=== PATIENT | male | born 1985 | race Hispanic/Latino ===

== ENCOUNTER 2022-04-15 10:55 | Observation (INO) | payer BC, SELFPAY ==
[2022-04-15] VITALS (16 sets, daily range): BP systolic 142–177; BP diastolic 69–98; PULSE 95–124; RESP 18–36; TEMP 36.2–38.7; O2SAT 92–98; BMI 33.9; BMI 33.8
[2022-04-15 11:58] LABS: Absolute Lymphocyte Count 0.82 X10^3/uL (0.83-4.51); Absolute Neutrophil Count 17.8 X10^3/uL (2.0-7.7); Basophil# 0.04 X10^3/uL; Basophil% 0.2 % (0-1); Eosinophil# 0.02 X10^3/uL; Eosinophils% 0.1 % (0-5); Hematocrit 53.4 % (40-54); Hemoglobin 17.5 g/dL (13.0-16.5); Lymphocyte # 0.82 X10^3/ul (0.83-4.51); Lymphocyte % 4.2 % (19-41); Mean Corp Hgb Conc 32.8 g/dL (32-36); Mean Corpuscular Hgb 29.5 pg (27.0-32.0); Mean Corpuscular Volume 89.9 fL (80-94); Mean Platelet Vol. 9.7 fl (6.2-12.0); Monocyte# 0.61 X10^3/uL; Monocyte% 3.1 % (0-10); NRBC Flagged by Analyzer 0 % (0-5); Neutrophil # 17.84 X10^3/uL (2.7-7.7); Platelet Count 208 K/mm3 (150-450); RBC Distribution Width CV 13.7 % (11.6-14.6); RBC Distribution Width SD 45.5 fl (35.1-43.9); Red Blood Count 5.94 M/mm3 (4.6-6.2); White Blood Count 19.4 K/mm3 (4.4-11.0)
--- NOTE | 2022-04-15 12:06 | CT_ITS ---
STUDY: CT ABDOMEN AND PELVIS WITH CONTRAST REASON FOR EXAM: Male, 36 years old. One-day history of right lower quadrant pain and nausea. RADIATION DOSAGE (If Supplied By Facility): CTDIvol = ( 22.71 ) mGy, DLP = ( 1270.72 ) mGycm TECHNIQUE: Transaxial images were obtained from the dome of the diaphragm to the symphysis pubis without oral contrast. IV 100mL Isovue-300 was administered. Sagittal and coronal images were reconstructed. Individualized dose optimization techniques were used for this CT. COMPARISON: None. FINDINGS: Minimal degree of bilateral dependent basilar atelectasis. The visualized portions of the heart are within normal limits. Normal liver. A tiny gallstone is seen within the dependent portion of the gallbladder lumen. Normal spleen. Normal pancreas. Normal bilateral adrenal glands. Normal right kidney. Punctate calculus in the lower pole calyx of the left kidney. Normal visualized stomach. Normal small intestine. Normal colon. There is a tubular, thick-walled appendix (>7mm), consistent with acute appendicitis. Small lymph nodes are seen in the mesenteric fat in the right lower quadrant. This is in keeping with mesenteric adenitis. Normal abdominal aorta. Normal inferior vena cava. There is borderline retroperitoneal lymphadenopathy with enlarged nodes no greater than 10mm in the short axis diameter. Normal urinary bladder. There are prostatic calcifications. Small bilateral inguinal hernias containing fat. Normal osseous structures. CT/Abdomen/Pelvis W IV Cont ONLY IMPRESSION: Acute unruptured appendicitis. Tiny gallstones along the dependent portion of the gallbladder lumen. Small bilateral inguinal hernias containing fat. N.B. : The above Results were Read Back by Zeus De Luna MD to Bob Restrepo DO, and understanding confirmed on 04/15/2022 12:43:39 (ET). Electronically Signed: Zeus De Luna MD at 12:44 EDT ,
--- NOTE | 2022-04-15 12:07 | ED.VIS.GI ---
HPI HPI - GI History of Present Illness Chief Complaint: Nausea/Vomiting Narrative Narrative: 36-year-old male presenting with right lower quadrant abdominal pain. He states that it really started hurting him last evening. He started to have nausea and vomiting. He states that he had a slight ache in the lower abdomen a couple of days ago. He thought it was may be constipation so he is taking something for this and was having bowel movements and did not think anything of it. Overnight he states this worsened dramatically. He does not have a fever but he does admit to chills and sweats. No urinary complaints. He states he has no medical problems. He is never had any surgeries. No medication allergies. PFSH PFSH Allergy/AdvReac Type Severity Reaction Status Date / Time No Known Allergies Allergy Verified 04/15/22 10:56 ROS ROS ED Constitutional Constitutional ED: Reports chills and sweats ENT ENT ED: Denies rhinorrhea or sore throat Cardiovascular Cardiovascular: Denies chest pain or palpitations Respiratory/Chest Respiratory/Chest: Denies cough or dyspnea Gastrointestinal Gastrointestinal: Reports abdominal pain, constipation, nausea and vomiting Genitourinary Genitourinary ED: Denies dysuria or hematuria Musculoskeletal Musculoskeletal: Reports myalgias Integumentary Denies abscess or Abrasions Neurologic Neurologic: Denies headache(s) or paresthesias Psychiatric Psychiatric: Denies anxiety or depression EXAM Physical Exam Const Vital Signs: 04/15/22 10:57 Temperature 97.1 F L Temperature Source Temporal Pulse Rate 95 Respiratory Rate 18 Blood Pressure 153/84 H Blood Pressure Mean 107 Pulse Ox 96 Oxygen Delivery Method Room Air Positive well nourished Constitutional Narrative: Appears to be in pain General Appearance ED: Negative for pallor HEENT Reports moist mucous membranes normocephalic and atraumatic Eyes PERRL and EOMs intact bilaterally General Eye ED: Negative for pale conjunctiva or scleral icterus Resp normal respiratory effort and clear to auscultation bilaterally Auscultation: Negative for rales, rhonchi or wheezes Cardio regular rate and regular rhythm GI Palpation: tender RLQ and McBurney's point Back/Spine no CVA tenderness Neuro CN's II-XII intact bilaterally, moves all extremities and no sensory deficits noted Sensorium / Orientation: alert, oriented to person, oriented to place and oriented to time Motor Exam: strength 5/5 throughout Psych mental status grossly normal Skin General Skin Exam: Negative for jaundice or pallor MDM MDM MDM Narrative Medical decision making narrative: Patient seen and evaluated on arrival for right lower quadrant abdominal pain. He does state he had some mild aching for the couple of days before this really started hurting. He thought he was constipated initially. Patient medicated with IV fluids, morphine, Zofran. CBC shows a leukocytosis of 19.4. Hemoglobin hemoconcentrated at 17.5. Platelets normal at 208. His AST is slightly high at 85, ALT 92, alkaline phosphatase normal total bilirubin normal. CT of the abdomen pelvis shows acute nonruptured appendicitis. Dr. Garcia was notified and will take the patient to the OR when she gets an OR time. She request Zosyn which is given. He is given a second liter of IV fluids. He requests more pain medicine was given 0.5 mg of Dilaudid. Patient admitted in stable condition. Impression: 1. Acute appendicitis 2. Leukocytosis 3. Nausea/vomit Lab Data Labs: Laboratory Results - last 24 hr 04/15/22 04/15/22 11:40 11:40 WBC 19.4 H RBC 5.94 Hgb 17.5 H Hct 53.4 MCV 89.9 MCH 29.5 MCHC 32.8 RDW Std Deviation 45.5 H RDW Coeff of Harshil 13.7 Plt Count 208 MPV 9.7 Immature Gran % (Auto) 0.400 Neut % (Auto) 92.0 H Lymph % (Auto) 4.2 L [place] % (Auto) 3.1 Eos % (Auto) 0.1 Baso % (Auto) 0.2 Absolute Neuts (auto) 17.8 H Absolute Lymphs (auto) 0.82 L Nucleated RBC % 0 Sodium 137 Potassium 4.3 Chloride 105 Carbon Dioxide 26.0 Anion Gap 6 BUN 9 Creatinine 1.01 Estim Creat Clear Calc 112.05 Est GFR (MDRD) Af Amer 108 Est GFR (MDRD) Non-Af 89 BUN/Creatinine Ratio 8.9 L Glucose 93 Calcium 9.5 Total Bilirubin 0.70 AST 85 H ALT 92 H Alkaline Phosphatase 43 L Total Protein 7.7 Albumin 3.7 Globulin 4.0 Albumin/Globulin Ratio 0.9 Radiography Diagnostic Testing: Clinical Impression(s) from Imaging Studies Abdomen/Pelvis CT 04/15/22 12:06 IMPRESSION: Acute unruptured appendicitis. Tiny gallstones along the dependent portion of the gallbladder lumen. Small bilateral inguinal hernias containing fat. N.B. : The above Results were Read Back by Zeus De Luna MD to Bob Restrepo DO, and understanding confirmed on 04/15/2022 12:43:39 (ET). Electronically Signed: Zeus De Luna MD at 12:44 EDT , ADDENDUM: 04/15/22 1251 IMPRESSION: Acute unruptured appendicitis. Tiny gallstones along the dependent portion of the gallbladder lumen. Small bilateral inguinal hernias containing fat. N.B. : The above Results were Read Back by Zeus De Luna MD to Bob Restrepo DO, and understanding confirmed on 04/15/2022 12:43:39 (ET). Electronically Signed: Zeus De Luna MD at 12:44 EDT , Discharge Plan Triage Chief Complaint: Nausea/Vomiting Other Complaint: Abd Pain ED Provider: Bob Restrepo Dx/Rx/DC Orders Primary Care Provider: Care Physician,No Primary Referrals: Care Physician,No Primary [Primary Care Provider] -
[2022-04-15 12:11] LABS: ALB/GLOB Ratio 0.9 RATIO (0.9-2.4); AST(SGOT) 85 U/L (15-37); Alanine Aminotransfer ALT/SGPT 92 U/L (16-61); Albumin, Serum 3.7 g/dL (3.2-5.0); Alkaline Phosphatase 43 U/L (45-117); Anion Gap 6 (5-15); BUN 9 mg/dL (7-18); BUN/Creat Ratio 8.9 RATIO (10-20); Calcium,Total 9.5 mg/dL (8.5-10.1); Chloride 105 mmol/L (98-107); Creatinine, Serum 1.01 mg/dL (0.70-1.30); EST Glomerular Filtration Rate 89 mL/min (>60); Est Glom Filt Rate - Afr Amer 108 mL/min (>60); Estimated Creatinine Clearance 112.05 ml/min; Glucose 93 mg/dL (74-106); Potassium 4.3 mmol/L (3.5-5.1); Protein, Total 7.7 g/dL (6.4-8.2); Sodium Level 137 mmol/L (136-145)
[2022-04-15] MEDS: Ondansetron 4 MG/2 ML Vial IV ×2 (12:17→14:12)
[2022-04-15] MEDS: 0.9% Normal Saline 1,000 ML 999 ML IV (12:17)
[2022-04-15] MEDS: Morphine 4 MG/ML Syringe IV ×2 (12:18→14:05)
[2022-04-15 13:16] LABS: Bacteria 0 SEEN /hpf (None Seen); Mucous, Urine 0 SEEN /hpf (<or=2+); Red Blood Cells-Urine 0 SEEN /hpf (0-5); Squamous Epithelial Cells - UA 0 SEEN /hpf (0-5); White Blood Cells 0 SEEN /hpf (0-5)
[2022-04-15] MEDS: HYDROmorphone 0.5 MG/0.5 ML SYRINGE IV (13:19)
[2022-04-15 13:25] LABS: Color, Urine Yellow (Yellow); Glucose, Dipstick Normal (Normal); Ketone-Dipstick 50 mg/dl (Negative); Leukocyte Esterase-Dipstick 25 /ul (Negative); Nitrite-Dipstick Negative (Negative); Occult Blood-Urine Negative /ul (Negative); Protein-Dipstick 30 mg/dl (Negative); Specific Gravity, Urine 1.015 (1.002-1.030); Urine Bilirubin Dipstick Negative (Negative); Urine Clarity Clear (Clear); Urine Urobilinogen Normal (Normal)
--- NOTE | 2022-04-15 14:00 | PCM.HP.STD ---
HPI - General HPI Narrative JAVIER DOMINGO, is a 36 M who presents to the ER due to right lower quadrant abdominal pain. Patient states he has had some achy abdominal pain the last night it increased in severity and is in the right lower quadrant. Patient did have nausea and vomiting due to the pain. Patient has not anything to eat today. Patient CT abdomen pelvis which showed acute appendicitis. Patient white blood cells 19.4. Patient was given Zosyn IV in the ER. [facility] History no medical history Home Medications NK 04/15/22 [History Last Taken Unknown] Allergy/AdvReac Type Severity Reaction Status Date / Time No Known Allergies Allergy Verified 04/15/22 10:56 Family History no significant family his Surgical History no surgical history Social History Smoking Status: Never smoker ROS Cardiovascular Cardiovascular: Denies chest pain Respiratory/Chest Respiratory/Chest: Denies shortness of breath at rest Gastrointestinal Gastrointestinal: Reports abdominal pain, anorexia, nausea and vomiting Vital Signs Vital Signs Vital Signs: 04/15/22 10:57 04/15/22 13:49 Temperature 97.1 F L 101 F H Temperature Source Temporal Temporal Pulse Rate 95 97 Respiratory Rate 18 18 Blood Pressure 153/84 H 157/98 H Blood Pressure Mean 107 117 Blood Pressure Source Monitor Blood Pressure Position Semi-Fowlers Blood Pressure Location Right Arm Pulse Ox 96 98 Oxygen Delivery Method Room Air Room Air Weight Weight: 249 lb 12.187 oz Body Mass Index (BMI) 33.8 Physical Exam Const alert, oriented x3 and no apparent distress HEENT normocephalic and head/scalp atraumatic Resp normal respiratory effort Cardio regular rate GI soft to palpation; Negative for non-distended Palpation: tender RLQ; Negative for guarding Extremity no clubbing, cyanosis or edema Neuro CN's II-XII intact bilaterally Psych mental status grossly normal Results Lab / Micro Data Result Diagrams: 04/15/22 11:40 04/15/22 11:40 Labs: Laboratory Results - last 24 hr 04/15/22 11:40: WBC 19.4 H, RBC 5.94, Hgb 17.5 H, Hct 53.4, MCV 89.9, MCH 29.5, MCHC 32.8, RDW Std Deviation 45.5 H, RDW Coeff of Harshil 13.7, Plt Count 208, MPV 9.7, Immature Gran % (Auto) 0.400, Neut % (Auto) 92.0 H, Lymph % (Auto) 4.2 L, [place] % (Auto) 3.1, Eos % (Auto) 0.1, Baso % (Auto) 0.2, Absolute Neuts (auto) 17.8 H, Absolute Lymphs (auto) 0.82 L, Nucleated RBC % 0 04/15/22 11:40: Sodium 137, Potassium 4.3, Chloride 105, Carbon Dioxide 26.0, Anion Gap 6, BUN 9, Creatinine 1.01, Estim Creat Clear Calc 112.05, Est GFR (MDRD) Af Amer 108, Est GFR (MDRD) Non-Af 89, BUN/Creatinine Ratio 8.9 L, Glucose 93, Calcium 9.5, Total Bilirubin 0.70, AST 85 H, ALT 92 H, Alkaline Phosphatase 43 L, Total Protein 7.7, Albumin 3.7, Globulin 4.0, Albumin/Globulin Ratio 0.9 04/15/22 13:15: Urine Color Yellow, Urine Clarity Clear, Urine pH 8.0, Ur Specific [place] 1.015, Urine Protein 30 H, Urine Glucose (UA) Normal, Urine Ketones 50 H, Urine Occult Blood Negative, Urine Nitrite Negative, Urine Bilirubin Negative, Urine Urobilinogen Normal, Ur Leukocyte Esterase 25 H, Urine RBC 0 SEEN, Urine WBC 0 SEEN, Ur Squamous Epith Cells 0 SEEN, Urine Bacteria 0 SEEN, Urine Mucus 0 SEEN Radiology Impression Abdomen/Pelvis CT 04/15/22 12:06 IMPRESSION: Acute unruptured appendicitis. Tiny gallstones along the dependent portion of the gallbladder lumen. Small bilateral inguinal hernias containing fat. N.B. : The above Results were Read Back by Zeus De Luna MD to Bob Restrepo DO, and understanding confirmed on 04/15/2022 12:43:39 (ET). Electronically Signed: Zeus De Luna MD at 12:44 EDT , ADDENDUM: 04/15/22 1251 IMPRESSION: Acute unruptured appendicitis. Tiny gallstones along the dependent portion of the gallbladder lumen. Small bilateral inguinal hernias containing fat. N.B. : The above Results were Read Back by Zeus De Luna MD to Bob Restrepo DO, and understanding confirmed on 04/15/2022 12:43:39 (ET). Electronically Signed: Zeus De Luna MD at 12:44 EDT , Assessment & Plan Assessment/Plan (1) Acute appendicitis: PLAN: Plan 1. Discussed procedure laparoscopic appendectomy, possible open along with the risk but not limited to bleeding, infection/abscess, injury to another organ (small bowel, colon, etc.), adhesion, hernia at incision sites, and anesthesia. Patient no further question this time. Gilda Garcia M.D. Pager: [phone] [facility] [address] [place] [address], [address] [place] [id number] Office: [phone]
[2022-04-15] MEDS: Lactated Ringers 1,000 ML 75 ML IV (15:45)
--- NOTE | 2022-04-15 16:38 | PCM.OPRPT ---
Report of Operation Date of Procedure: 04/15/22 Pre-Operative Diagnosis: Acute appendicitis Post-Operative Diagnosis: Acute necrotic perforated appendicitis Surgery/Procedure Performed:: Laparoscopic appendectomy Surgeon: Gilda Garcia Type of Anesthesia: General/Supplemental Anesthesiologist: Alvino Burciaga Special Medications: Zosyn 4.5 g IV x1 in the ER for acute appendicitis Specimen's removed: Appendix Estimated Blood Loss (mL): < 10 cc Fluids Replaced: Per anesthesia Description of Procedure: Indications: 36-year-old male presented to the ER with new right lower quadrant pain last night. On workup he was found to have acute appendicitis on CT and a leukocytosis of 19.4. Patient was started on antibiotics in the ER for acute appendicitis-Zosyn IV Description of the procedure: The patient was placed on operating table in supine position. General anesthesia was induced. A timeout was completed verifying correct patient, procedure, position and special equipment prior to beginning procedure. Abdomen was prepped and draped in usual sterile fashion. Incision was made in the natural skin line above the umbilicus with a 15 blade scalpel. The fascia was elevated and incised. Entry into the peritoneum was confirmed visually and no bowel was noted in the vicinity of the incision. The Barriga trocar was placed under direct vision. Abdomen insufflated with a pressure of 12-15 mmHg. Patient tolerated insertion well. The scope was inserted and the abdomen inspected. No injuries from initial trocar placement were noted. Minimal amount of fluid was seen in the right lower quadrant. An direct visualization 2 -5 mm trocars were placed one above the symphysis pubis and below the hairline and one in the left lower quadrant lateral to the rectus muscle. Care is taken to avoid injury to the bladder and inferior epigastric vessels. The table was placed in Trendelenburg position with the right side elevated. The appendix was grasped with atraumatic grasper and elevated. It was noted to be necrotic with suppurative serositis, perforated with manipulation. Purulent drainage was suctioned. A window was developed in the mesoappendix at the point between the base of the appendix and the cecum. An endoscopic 45 mm linear cutting stapler blue load was then used to divide and staple the base of the appendix. Enseal was used to divide the mesoappendix. The inflamed appendix was adherent to the terminal ileum. Questionable partial thickness injury due to adhesions to the terminal ileum. This area was oversewn with 3-0 Lemberted silk sutures. The appendix was withdrawn into the Barriga trocar after being placed endoscopically retrieval bag. Appendix was sent to pathology. The appendiceal stump was then irrigated and hemostasis was assured. Fluid was suctioned no other pathology was identified. Secondary trochars were removed under direct visualization. No bleeding was noted trocar sites. The laparoscope withdrawn and the umbilical trocar removed. The abdomen was allowed to collapse. Local anesthesia of 30 mL of 0.25% Marcaine was used at the incision sites. The umbilical trocar site was closed with the [id number] 0 PDS suture. The skin was closed using sutures of 4-0 Monocryl and Steri-Strips. The patient was extubated. The patient tolerated the procedure well and was taken to the postanesthesia care unit in satisfactory condition. Complications Inadvertent possible partial thickness injury to terminal ileum due to adhesions-oversewn.
--- NOTE | 2022-04-15 17:22 | SUR.PHASEI ---
TACHYPNEA CONTINUES. PATIENT STATES HE'S TAKING SMALL, SHALLOW BREATHS BECAUSE IT HURTS TO BREATHE. DENIES ACTUALLY FEELING SHORT OF BREATH OR HAVING DIFFICULTY BREATHING.
[2022-04-15] MEDS: 0.9% Normal Saline 1,000 ML 120 ML IV (18:02)
[2022-04-15] MEDS: Ketorolac 30 MG/ML Syringe IV (19:06)
[2022-04-15] MEDS: oxyCODONE 5 MG Tablet PO (21:54)
[2022-04-15] MEDS: Acetaminophen 325 MG Tablet 650 MG PO (21:54)
[2022-04-16] VITALS (8 sets, daily range): BP systolic 120–151; BP diastolic 56–86; PULSE 103–114; RESP 18–24; TEMP 36.8–37.5; O2SAT 91–95
--- NOTE | 2022-04-16 | APP_PTH ---
PATIENT: JAVIER DOMINGO LOC: MS3 U#:[id number] AGE/SX: 36/M ROOM: ND323 RE04/15/[address]: Dr. Gilda Garcia MD : 1985 BED: 1 DIS: 04/16/2022 SPEC #: [id number] RECD: 04/16/22 13:44 STATUS: PROMISE REBradley #: [id number] ORESTES: 04/16/22 00:[address]: Gilda Garcia DEPT: SURGICAL PATHOLOGY RECD BY: Jimmy Nicholas ENTERED: 04/16/22 13:45 SP TYPE: APPENDIX OTHR DR: No Primary Care Phys Tissues: Appendix, NOS Procedures: Surgery Specimen Level III HEADER OPERATION: Laparoscopic appendectomy PRE-OP DIAGNOSIS: Necrotic perforated appendicitis TISSUE SUBMITTED: Appendix MICROSCOPIC DIAGNOSIS Appendix, appendectomy: Acute appendicitis. AM:barbie 04/19/2022 MICROSCOPIC DESCRIPTION Slides are reviewed. GROSS DESCRIPTION Received in fixative is one container labeled with the patient's name and designated appendix. The specimen consists of a vermiform appendix measuring 8 cm in length and 1.2 cm in average diameter. No gross perforation is identified. Serial sections reveal a patent lumen with fecal material. No mass lesion is identified. Lead Web Developer sections are submitted in one cassette. / AM:barbie 04/16/2022 TC:2 CPT: 32911
[2022-04-16] MEDS: 0.9% Normal Saline 1,000 ML 120 ML IV ×2 (01:11→09:35)
[2022-04-16] MEDS: oxyCODONE 5 MG Tablet PO ×2 (03:02→11:29)
[2022-04-16 05:41] LABS: Absolute Neutrophil Count 16.5 X10^3/uL (2.0-7.7); Basophil# 0.02 X10^3/uL; Basophil% 0.1 % (0-1); Hematocrit 49.3 % (40-54); Hemoglobin 16.2 g/dL (13.0-16.5); Lymphocyte % 5.8 % (19-41); Mean Corp Hgb Conc 32.9 g/dL (32-36); Mean Corpuscular Hgb 29.5 pg (27.0-32.0); Mean Corpuscular Volume 89.6 fL (80-94); Mean Platelet Vol. 9.5 fl (6.2-12.0); Monocyte# 1.39 X10^3/uL; Monocyte% 7.3 % (0-10); NRBC Flagged by Analyzer 0 % (0-5); Neutrophil # 16.47 X10^3/uL (2.7-7.7); Neutrophil % 86.1 % (47-70); Platelet Count 218 K/mm3 (150-450); RBC Distribution Width SD 46.5 fl (35.1-43.9); White Blood Count 19.1 K/mm3 (4.4-11.0)
[2022-04-16 06:37] LABS: Anion Gap 8 (5-15); BUN 11 mg/dL (7-18); BUN/Creat Ratio 9.5 RATIO (10-20); Calcium,Total 8.2 mg/dL (8.5-10.1); Chloride 103 mmol/L (98-107); Creatinine, Serum 1.16 mg/dL (0.70-1.30); EST Glomerular Filtration Rate 76 mL/min (>60); Est Glom Filt Rate - Afr Amer 92 mL/min (>60); Estimated Creatinine Clearance 97.56 ml/min; Glucose 123 mg/dL (74-106); Potassium 4.3 mmol/L (3.5-5.1); Sodium Level 136 mmol/L (136-145)
--- NOTE | 2022-04-16 07:42 | PN.SURG_ITS ---
Subjective Subjective Patient's tach cardia has improved. Patient's pain is controlled with Oxy IR. Patient states that his previous right lower quadrant pain is much improved and just has more incisional pain. Objective Data Objective Data Vital Signs: Vital Signs Temp Pulse Resp BP Pulse Ox O2 Del Method O2 Flow Rate 99.5 F H 103 H 22 H 123/77 H 95 Room Air 1.5 04/16/22 05:45 04/16/22 05:45 04/16/22 05:45 04/16/22 05:45 04/16/22 05:45 04/16/22 05:45 04/15/22 23:05 Oxygen Flow Rate (L/min) 1.5 Oxygen Delivery Method Room Air Weight: 250 lb Body Mass Index (BMI) 33.9 Intake & Output: Intake and Output for Last 24 Hours 04/14/22 04/15/22 04/16/22 23:59 23:59 23:59 Intake Total 2551.75 / 2551.75 970.75 / 970.75 Output Total 350 / 350 Balance 2201.75 / 2201.75 970.75 / 970.75 Lab / Micro Data Result Diagrams: 04/16/22 05:17 04/16/22 05:17 Labs: Laboratory Results - last 24 hr 04/15/22 11:40: WBC 19.4 H, RBC 5.94, Hgb 17.5 H, Hct 53.4, MCV 89.9, MCH 29.5, MCHC 32.8, RDW Std Deviation 45.5 H, RDW Coeff of Harshil 13.7, Plt Count 208, MPV 9.7, Immature Gran % (Auto) 0.400, Neut % (Auto) 92.0 H, Lymph % (Auto) 4.2 L, [place] % (Auto) 3.1, Eos % (Auto) 0.1, Baso % (Auto) 0.2, Absolute Neuts (auto) 17.8 H, Absolute Lymphs (auto) 0.82 L, Nucleated RBC % 0 04/15/22 11:40: Sodium 137, Potassium 4.3, Chloride 105, Carbon Dioxide 26.0, Anion Gap 6, BUN 9, Creatinine 1.01, Estim Creat Clear Calc 112.05, Est GFR (MDRD) Af Amer 108, Est GFR (MDRD) Non-Af 89, BUN/Creatinine Ratio 8.9 L, Glu cose 93, Calcium 9.5, Total Bilirubin 0.70, AST 85 H, ALT 92 H, Alkaline Phosphatase 43 L, Total Protein 7.7, Albumin 3.7, Globulin 4.0, Albumin/Globulin Ratio 0.9 04/15/22 13:15: Urine Color Yellow, Urine Clarity Clear, Urine pH 8.0, Ur Specific [place] 1.015, Urine Protein 30 H, Urine Glucose (UA) Normal, Urine Ketones 50 H, Urine Occult Blood Negative, Urine Nitrite Negative, Urine Bilirubin Negative, Urine Urobilinogen Normal, Ur Leukocyte Esterase 25 H, Urine RBC 0 SEEN, Urine WBC 0 SEEN, Ur Squamous Epith Cells 0 SEEN, Urine Bacteria 0 SEEN, Urine Mucus 0 SEEN 04/16/22 05:17: WBC 19.1 H, RBC 5.50, Hgb 16.2, Hct 49.3, MCV 89.6, MCH 29.5, MCHC 32.9, RDW Std Deviation 46.5 H, RDW Coeff of Harshil 14.0, Plt Count 218, MPV 9.5, Immature Gran % (Auto) 0.700, Neut % (Auto) 86.1 H, Lymph % (Auto) 5.8 L, [place] % (Auto) 7.3, Eos % (Auto) 0.0, Baso % (Auto) 0.1, Absolute Neuts (auto) 16.5 H, Absolute Lymphs (auto) 1.10, Nucleated RBC % 0 04/16/22 05:17: Sodium 136, Potassium 4.3, Chloride 103, Carbon Dioxide 25.0, Anion Gap 8, BUN 11, Creatinine 1.16, Estim Creat Clear Calc 97.56, Est GFR (MDRD) Af Amer 92, Est GFR (MDRD) Non-Af 76, BUN/Creatinine Ratio 9.5 L, Glucose 123 H, Calcium 8.2 L Radiography Diagnostic Testing: Radiology Impression Abdomen/Pelvis CT 04/15/22 12:06 IMPRESSION: Acute unruptured appendicitis. Tiny gallstones along the dependent portion of the gallbladder lumen. Small bilateral inguinal hernias containing fat. N.B. : The above Results were Read Back by Zeus De Luna MD to Bob Restrepo DO, and understanding confirmed on 04/15/2022 12:43:39 (ET). Electronically Signed: Zeus De Luna MD at 12:44 EDT , ADDENDUM: 04/15/22 1251 IMPRESSION: Acute unruptured appendicitis. Tiny gallstones along the dependent portion of the gallbladder lumen. Small bilateral inguinal hernias containing fat. N.B. : The above Results were Read Back by Zeus De Luna MD to Bbo Restrepo DO, and understanding confirmed on 04/15/2022 12:43:39 (ET). Electronically Signed: Zeus De Luna MD at 12:44 EDT , Physical Exam Resp normal respiratory effort Cardio Rate: tachycardic GI GI Narrative: Abdomen: Soft, nondistended, tender near incision's dressed clean dry and intact, no peritoneal signs Assessment & Plan Assessment/Plan (1) S/P laparoscopic appendectomy: PLAN: Plan Will advance diet to full's for breakfast and plan for regular for lunch. Patient continues to do well plan to DC home after lunch. We will give patient 3 days of Augmentin as well on discharge. Encourage continued ambulation. Gilda Garcia M.D. Pager: [phone] [facility] [address] [place] [address], [address] [place] [id number] Office: [phone]
--- NOTE | 2022-04-16 08:30 | DCINST_ITS ---
Discharge Instructions Diet Discharge Diet: Light diet - advance as tolerated Activity Discharge Activity: May Not Drive (while taking narcotic pain medications.) May shower in (days): 1 Lifting Restrictions: no lifting >20 lbs x 2 wks, no strenuous exercise for 4 wks Dressing / Incision Call your doctor if your incision/area has: Continuous Slow Oozing, Sudden Increased Bleeding, Increased Pain/ Swelling, Increased Redness, Foul Smelling Discharge and Swelling at the incision site Call your doctor if you observe: Fever of 101 or Higher Remove Dressing in: 2 days Cleanse incision/area with: Soap & Water Additional Dressing/Incision Instructions:: Steri-Strips will fall off in 7 to 10 days, if they do not fall off okay to remove after 10 days. Follow Up Care Please Follow Up With: Gilda Garcia MD When: Call the office for a follow-up appointment 2 weeks; after 5 PM and on the weekends call [phone] with any concerns. Test Results: Test results from this visit will be discussed in further detail at your follow- up appointment, if applicable. Discharge Plan Admission Admit Date/Time: 04/15/22 13:02 Attending Provider: Gilda Garcia Primary Care Provider: Aida PhysicianFernanda Primary Instructions Additional Instructions / Restrictions: Okay to take ibuprofen 400-600 mg PO q6hr PRN along with the Percocet. Avoid Tylenol since there is already Tylenol in the Percocet. Take all pain meds with food. Percocet can cause constipation recommend taking daily stool softener (i.e. Colace/docusate) while taking the pain meds. Recommend starting some MiraLAX in 1 to 2 days if no bowel movement. If still no bowel movement the following day recommend taking magnesium citrate half the bottle-- or if unable to find magnesium citrate take 2 Dulcolax laxative -- and waiting 4-6 hours if still no results take the other half the bottle-- or another 2 dulcolax laxative. Discharge Orders/Prescriptions Prescriptions: New oxycodone-acetaminophen 5-325 mg tablet 1 - 2 tab PO Q6H PRN (Reason: pain) 3 Days Qty: 20 0RF amoxicillin-pot clavulanate 875-125 mg tablet 1 tab PO BID Qty: 6 0RF Referrals / Follow Up: Care Physician,No Primary [Primary Care Provider] - Disposition Disposition (needs filled in before D/C Order can be placed): Home, Self Care
[2022-04-16] MEDS: Ibuprofen 200 MG Tablet PO (09:40)
== END 2022-04-16 13:45 | disposition home or self-care (01) ==
LOC: ED 11:58 → SDC 13:32 → ED 15:14 → SDC 15:14 → ED 15:15 → SDC 15:16 → MS3 15:28
PROVIDERS: Admitting Provider Surgery; Emergency Provider Student in an Organized Health Care Education/Training Program; Visit Provider Surgery
PROC: 0DTJ4ZZ Resection of Appendix, Percutaneous Endoscopic Approach (ICD-10-PCS; CPT 44970; principal; 2022-04-15 15:10)
DX: K35.32 Acute appendicitis with perforation, localized peritonitis, and gangrene, without abscess (principal); K66.0 Peritoneal adhesions (postprocedural) (postinfection); K91.71 Accidental puncture and laceration of a digestive system organ or structure during a digestive system procedure; Y92.234 Operating room of hospital as the place of occurrence of the external cause
CPT/HCPCS: 44970; 00840; 36415; 74177; 80048; 80053; 81001; 85025; 88304; 96361; 96365; 96366; 96375; 99218; 99251; 99284; J7030; J7050; J7120; Q9967; A4216; C1760; G0378; G0463; J2405

== ENCOUNTER 2022-04-18 21:12 | Inpatient (IN) | payer BC, SELFPAY ==
[2022-04-18] VITALS (7 sets, daily range): BP systolic 153–169; BP diastolic 100–105; PULSE 105–128; RESP 18–30; TEMP 36.8–37.3; O2SAT 88–93; BMI 33.9
--- NOTE | 2022-04-18 21:28 | CT_ITS ---
INDICATION: Peritonitis status post laparoscopic appendectomy. Right side pain and elevated white blood cell count status post appendectomy on . EXAMINATION: CT Abdomen And Pelvis W/ Contrast Injection TECHNIQUE: Helically acquired images were obtained of the abdomen and pelvis following IV contrast. 2-D reconstructions reviewed. A radiation dose optimization technique was used for this scan. IV Contrast dosage and agent: 100 mL Isovue-370 Oral contrast: None. COMPARISON: Contrast enhanced CT abdomen and pelvis from 04/15/2022 FINDINGS: LOWER CHEST: Right greater than left bilateral lower lobe atelectatic changes. Heart size remains upper limits normal. LIVER: Homogeneous. No concerning lesion. GALLBLADDER AND BILIARY TREE: No calcified gallstones identified. No gallbladder wall edema demonstrated. No significant biliary ductal dilation. PANCREAS: No discrete mass or peripancreatic edema. SPLEEN: Normal size without focal cystic or solid mass. ADRENAL GLANDS: Unremarkable. KIDNEYS AND URETERS: Normal renal size and position. No hydronephrosis. No concerning lesion. Tiny cyst within lower pole of left kidney, no additional follow-up recommended of this time. PERITONEUM: Pericecal inflammatory stranding and small amount of ill-defined right lower quadrant free fluid. Trace free fluid tracking up the right paracolic gutter and adjacent to dome of liver. Small amount of free fluid pooling within pelvis. No organized, rim-enhancing and/or drainable abscess collection detected at this time. Punctate focus of residual free air within the lower abdomen. BOWEL: In the interval, patient is status post appendectomy. There are multiple mildly dilated loops of small bowel with partially decompressed distal ileum. Gas and fecal matter within large bowel. LYMPH NODES: Small reactive lower abdominal mesenteric lymph nodes. VESSELS: Minimal aortoiliac atherosclerotic plaque. URINARY BLADDER: Unremarkable as visualized. REPRODUCTIVE ORGANS: Small dystrophic calcifications within prostate gland. ABDOMINAL WALL: Mild periumbilical edema status post recent laparoscopy. No abdominal wall fluid collection. Stable small bilateral inguinal fat hernias. BONES: Intact with no suspicious osseous lesion. CT/Abdomen/Pelvis W IV Cont ONLY IMPRESSION: 1. Recent appendectomy with scattered small amounts of free peritoneal fluid and pericecal inflammation but no organized and/or drainable abscess collection demonstrated at this time. 2. Right greater than left bilateral lower lobe atelectatic changes. 3. Probable mild reactive small bowel ileus versus low-grade distal small bowel obstruction. Electronically Signed: Rei Dangelo MD at 22:17 EDT ,
[2022-04-18] MEDS: HYDROmorphone 1 MG/ML Syringe IV ×2 (21:35→23:40)
[2022-04-18] MEDS: Ondansetron 4 MG/2 ML Vial IV (21:35)
[2022-04-18] MEDS: 0.9% Normal Saline 1,000 ML 1000 ML IV (21:35)
[2022-04-18 21:42] LABS: Absolute Neutrophil Count 14.8 X10^3/uL (2.0-7.7); Basophil# 0.05 X10^3/uL; Basophil% 0.3 % (0-1); Eosinophil# 0.31 X10^3/uL; Eosinophils% 1.7 % (0-5); Hematocrit 51.8 % (40-54); Hemoglobin 16.9 g/dL (13.0-16.5); Lymphocyte % 8.9 % (19-41); Mean Corp Hgb Conc 32.6 g/dL (32-36); Mean Corpuscular Hgb 29.4 pg (27.0-32.0); Mean Corpuscular Volume 90.1 fL (80-94); Mean Platelet Vol. 9.8 fl (6.2-12.0); Monocyte# 1.09 X10^3/uL; Monocyte% 6.1 % (0-10); NRBC Flagged by Analyzer 0 % (0-5); Neutrophil # 14.77 X10^3/uL (2.7-7.7); Neutrophil % 82.3 % (47-70); Platelet Count 279 K/mm3 (150-450); RBC Distribution Width CV 14.2 % (11.6-14.6); RBC Distribution Width SD 46.9 fl (35.1-43.9); Red Blood Count 5.75 M/mm3 (4.6-6.2); White Blood Count 17.9 K/mm3 (4.4-11.0)
[2022-04-18 21:54] LABS: Anion Gap 8 (5-15); BUN 8 mg/dL (7-18); BUN/Creat Ratio 7.5 RATIO (10-20); Calcium,Total 9.5 mg/dL (8.5-10.1); Chloride 103 mmol/L (98-107); Creatinine, Serum 1.07 mg/dL (0.70-1.30); EST Glomerular Filtration Rate 83 mL/min (>60); Est Glom Filt Rate - Afr Amer 101 mL/min (>60); Estimated Creatinine Clearance 105.76 ml/min; Glucose 98 mg/dL (74-106); Potassium 3.9 mmol/L (3.5-5.1); Sodium Level 137 mmol/L (136-145)
--- NOTE | 2022-04-18 22:56 | EX.ED.DYSGE1 ---
HPI <Dr. Sunil Hopkins MD - Last Filed: 04/20/22 23:32> History of Present Illness Chief Complaint: Abd Pain Detail of Chief Complaint: Abdominal pain, constipation and nausea Informant: patient Onset/Context/Timing Onset: Days Context: Gradual Onset Timing: Continuous and Waxes and wanes Quality: Predominantly right-sided abdominal pain Location: Abdomen Current Severity: Moderate Maximum Severity: Severe Worsened by: Walking, coughing and movement Relieved by: Nothing Associated Symptoms Associated Symptoms: Nausea and lightheadedness Narrative Narrative: Patient is a 36-year-old male status post laparoscopic appendectomy by Dr. Smith on April 15. He had an elevated white count at that time of 19.4 thousand. He was discharged to home on the . He contacted Dr. Casey Campbell this evening. He recommended he return to the emergency department. Patient reports walking into the emergency department because of discomfort. Car ride to the emergency department cause him discomfort. He does report nausea without vomiting. Is not had a bowel movement since surgery. He is taking Metamucil. He denies fever, chills night sweats. He denies chest pain. He denies dyspnea on exertion, orthopnea or PND. He denies dysuria, frequency, urgency or hematuria. Prior similar symptoms: No Recent Illness/Hospitalization: Yes PFSH <Dr. Sunil Hopkins MD - Last Filed: 04/20/22 23:32> [facility] Home Medications oxycodone-acetaminophen 5 mg-325 mg tablet 1 - 2 tab PO Q6H PRN pain 3 days #20 tabs 04/16/22 [Rx Last Taken 04/18/22 17:00] ondansetron 4 mg disintegrating tablet 4 mg PO Q6H PRN nausea and vomiting #7 tabs 04/17/22 [Rx Last Taken 04/18/22 17:00] amoxicillin 875 mg-potassium clavulanate 125 mg tablet 1 tab PO BID antibiotic 04/19/22 [History Last Taken 04/18/22 17:00] ibuprofen 600 mg tablet 600 mg PO Q6H PRN Pain 04/19/22 [History Last Taken Unknown] Allergy/AdvReac Type Severity Reaction Status Date / Time No Known Allergies Allergy Verified 04/19/22 01:05 Surgical History S/P laparoscopic appendectomy Social History household members: none Smoking Status: Never smoker substance use type: does not use ROS <Dr. Sunil Hopkins MD - Last Filed: 04/20/22 23:32> ROS ED Constitutional Constitutional ED: Reports fever(s) and subjective; Denies chills, sweats or weight loss Eyes Eyes: Denies blurry vision, change in vision or diplopia ENT ENT ED: Denies ear pain, rhinorrhea or sore throat Cardiovascular Cardiovascular: Denies chest pain, orthopnea, palpitations, paroxysmal nocturnal dyspnea or racing heartbeat Respiratory/Chest Respiratory/Chest: Reports dyspnea; Denies cough, dyspnea on exertion, orthopnea or paroxysmal nocturnal dyspnea Gastrointestinal Gastrointestinal: Reports abdominal pain, constipation and nausea; Denies diarrhea, melena or vomiting Genitourinary Genitourinary ED: Denies dysuria, hematuria or urinary frequency Musculoskeletal Musculoskeletal: Denies arthralgias, back pain, myalgias or neck pain Integumentary Denies abscess, Abrasions or rash Neurologic Neurologic: Denies headache(s), paresthesias or weakness Endocrine Endocrinology: Denies cold intolerance, heat intolerance or polydipsia Hematologic/Lymphatic Hematologic/Lymphatic: Reports none; Denies systems reviewed and no addt'l complaints, except as documented, anemia or easy bleeding EXAM <Dr. Sunil Hopkins MD - Last Filed: 04/20/22 23:32> Physical Exam Const Vital Signs: 04/18/22 21:13 04/18/22 21:36 04/18/22 21:45 Temperature 98.2 F Temperature Source Temporal Pulse Rate 128 H 112 H Respiratory Rate 18 30 H Blood Pressure 153/100 H 161/104 H Blood Pressure Mean 117 123 Pulse Ox 93 91 88 Oxygen Delivery Method Room Air Room Air Room Air Oxygen Flow Rate (L/min) 04/18/22 23:00 04/18/22 22:36 04/18/22 21:45 Temperature Temperature Source Pulse Rate 105 H 106 H Respiratory Rate 28 H 28 H Blood Pressure 163/103 H 160/102 H Blood Pressure Mean 123 121 Pulse Ox 93 93 92 Oxygen Delivery Method Nasal Cannula Nasal Cannula Nasal Cannula Oxygen Flow Rate (L/min) 2 2 2 04/18/22 23:42 Temperature 99.2 F H Temperature Source Oral Pulse Rate 110 H Respiratory Rate 29 H Blood Pressure 169/105 H Blood Pressure Mean 126 Pulse Ox 93 Oxygen Delivery Method Nasal Cannula Oxygen Flow Rate (L/min) 2 Positive well nourished, well developed and obese General Appearance ED: well developed and NAD; Negative for cyanotic, diaphoretic or pallor Nutritional Appearance: obese HEENT Reports dry mucous membranes HEENT Narrative: Ears normal. Nares patent. Mucosa dry. Mouth ED: Yes dry mucous membranes Mouth: dry mucous membranes Eyes PERRL and EOMs intact bilaterally General Eye ED: Negative for pale conjunctiva or scleral icterus Neck no lymphadenopathy, supple and no JVD Chest Wall inspection of chest normal and palpation of chest normal Resp normal respiratory effort and No clear to auscultation bilaterally Auscultation: rales bilateral lower Cardio regular rhythm, S1 normal heart sound, S2 normal heart sound and no murmurs Rate: tachycardic GI no masses; Negative for non-tender, non-distended or hepatosplenomegaly Inspection: abdominal distention Auscultation: hypoactive bowel sounds Palpation: soft, tender RLQ, guarding RLQ and rebound tenderness present other (Right lower quadrant); Negative for splenomegaly or mass Back/Spine no CVA tenderness Thoracic Spine / Upper Back: Negative for thoracic spinal tenderness Lumbar Spine / Lower Back: Negative for lumbar spinal tenderness Extremity normal to inspection General Extremety ED: Negative for edema, tenderness or other findings General Extremity: Negative for edema or other findings Neuro No oriented x3, No CN's II-XII intact bilaterally and No no sensory deficits noted Sensorium / Orientation: alert Motor Exam: strength 5/5 throughout Psych mental status grossly normal Skin no rashes or lesions noted, no wounds and skin turgor normal General Skin Exam: Negative for jaundice or pallor <Dr. Yajaira Starkey, DO - Last Filed: 04/19/22 00:08> Physical Exam Const Vital Signs: 04/18/22 21:13 04/18/22 21:36 04/18/22 21:45 Temperature 98.2 F Temperature Source Temporal Pulse Rate 128 H 112 H Respiratory Rate 18 30 H Blood Pressure 153/100 H 161/104 H Blood Pressure Mean 117 123 Pulse Ox 93 91 88 Oxygen Delivery Method Room Air Room Air Room Air Oxygen Flow Rate (L/min) 04/18/22 23:00 04/18/22 22:36 04/18/22 21:45 Temperature Temperature Source Pulse Rate 105 H 106 H Respiratory Rate 28 H 28 H Blood Pressure 163/103 H 160/102 H Blood Pressure Mean 123 121 Pulse Ox 93 93 92 Oxygen Delivery Method Nasal Cannula Nasal Cannula Nasal Cannula Oxygen Flow Rate (L/min) 2 2 2 04/18/22 23:42 Temperature 99.2 F H Temperature Source Oral Pulse Rate 110 H Respiratory Rate 29 H Blood Pressure 169/105 H Blood Pressure Mean 126 Pulse Ox 93 Oxygen Delivery Method Nasal Cannula Oxygen Flow Rate (L/min) 2 MDM <Dr. Sunil Hopkins MD - Last Filed: 04/20/22 23:32> [facility] Narrative Medical decision making narrative: Patient presents with significant right lower quadrant abdominal pain and peritoneal findings. Concern patient has postop infection and possible abscess. CT of the abdomen and pelvis with IV contrast was ordered. Blood work was ordered. I was informed by nursing staff that he desaturated. Since he is tachycardic postop day 3 and hypoxic with atelectasis noted on the CT of the abdomen a CTA for PE was ordered. Case was discussed Dr. Campbell. He will be in to see patient. He was informed of the interpretation of the CAT scan by the blast furnace keeper helper. Lactate was ordered by nursing staff. Will obtain blood cultures and treat with Zosyn. Lab Data Labs: Laboratory Results - last 24 hr 04/18/22 04/18/22 04/18/22 21:35 21:35 23:09 WBC 17.9 H RBC 5.75 Hgb 16.9 H Hct 51.8 MCV 90.1 MCH 29.4 MCHC 32.6 RDW Std Deviation 46.9 H RDW Coeff of Harshil 14.2 Plt Count 279 MPV 9.8 Immature Gran % (Auto) 0.700 Neut % (Auto) 82.3 H Lymph % (Auto) 8.9 L [place] % (Auto) 6.1 Eos % (Auto) 1.7 Baso % (Auto) 0.3 Absolute Neuts (auto) 14.8 H Absolute Lymphs (auto) 1.60 Nucleated RBC % 0 Sodium 137 Potassium 3.9 Chloride 103 Carbon Dioxide 26.0 Anion Gap 8 BUN 8 Creatinine 1.07 Estim Creat Clear Calc 105.76 Est GFR (MDRD) Af Amer 101 Est GFR (MDRD) Non-Af 83 BUN/Creatinine Ratio 7.5 L Glucose 98 Lactic Acid 0.8 Calcium 9.5 Radiography Diagnostic Testing: Clinical Impression(s) from Imaging Studies Abdomen/Pelvis CT 04/18/22 21:28 IMPRESSION: 1. Recent appendectomy with scattered small amounts of free peritoneal fluid and pericecal inflammation but no organized and/or drainable abscess collection demonstrated at this time. 2. Right greater than left bilateral lower lobe atelectatic changes. 3. Probable mild reactive small bowel ileus versus low-grade distal small bowel obstruction. Electronically Signed: Rei Dangelo MD at 22:17 EDT , Chest CTA 04/18/22 23:03 IMPRESSION: 1. No pulmonary embolus identified. 2. Bilateral atelectatic changes with superimposed patchy airspace within right upper lobe suggesting infiltrate/infection. 3. Trace free fluid adjacent to liver. See separate CT abdomen and pelvis report. Electronically Signed: Rei Dangelo MD at 23:55 EDT , <Dr. Yajaira Starkey, DO - Last Filed: 04/19/22 00:08> [facility] Narrative Medical decision making narrative: Patient presents with significant right lower quadrant abdominal pain and peritoneal findings. Concern patient has postop infection and possible abscess. CT of the abdomen and pelvis with IV contrast was ordered. Blood work was ordered. I was informed by nursing staff that he desaturated. Since he is tachycardic postop day 3 and hypoxic with atelectasis noted on the CT of the abdomen a CTA for PE was ordered. Case was discussed Dr. Campbell. He will be in to see patient. He was informed of the interpretation of the CAT scan by the blast furnace keeper helper. Lactate was ordered by nursing staff. Will obtain blood cultures and treat with Zosyn. Jaky- Patient signed out to me by Dr. Hopkins pending CT results and for final disposition. Patient does not have pulmonary emboli but is found to have a right upper lobe infiltrate. Patient is admitted to surgical service for further treatment. Lab Data Labs: Laboratory Results - last 24 hr 04/18/22 04/18/22 04/18/22 21:35 21:35 23:09 WBC 17.9 H RBC 5.75 Hgb 16.9 H Hct 51.8 MCV 90.1 MCH 29.4 MCHC 32.6 RDW Std Deviation 46.9 H RDW Coeff of Harshil 14.2 Plt Count 279 MPV 9.8 Immature Gran % (Auto) 0.700 Neut % (Auto) 82.3 H Lymph % (Auto) 8.9 L [place] % (Auto) 6.1 Eos % (Auto) 1.7 Baso % (Auto) 0.3 Absolute Neuts (auto) 14.8 H Absolute Lymphs (auto) 1.60 Nucleated RBC % 0 Sodium 137 Potassium 3.9 Chloride 103 Carbon Dioxide 26.0 Anion Gap 8 BUN 8 Creatinine 1.07 Estim Creat Clear Calc 105.76 Est GFR (MDRD) Af Amer 101 Est GFR (MDRD) Non-Af 83 BUN/Creatinine Ratio 7.5 L Glucose 98 Lactic Acid 0.8 Calcium 9.5 Radiography Diagnostic Testing: Clinical Impression(s) from Imaging Studies Abdomen/Pelvis CT 04/18/22 21:28 IMPRESSION: 1. Recent appendectomy with scattered small amounts of free peritoneal fluid and pericecal inflammation but no organized and/or drainable abscess collection demonstrated at this time. 2. Right greater than left bilateral lower lobe atelectatic changes. 3. Probable mild reactive small bowel ileus versus low-grade distal small bowel obstruction. Electronically Signed: Rei Dangelo MD at 22:17 EDT , Chest CTA 04/18/22 23:03 IMPRESSION: 1. No pulmonary embolus identified. 2. Bilateral atelectatic changes with superimposed patchy airspace within right upper lobe suggesting infiltrate/infection. 3. Trace free fluid adjacent to liver. See separate CT abdomen and pelvis report. Electronically Signed: Rei Dangelo MD at 23:55 EDT , Discharge Plan Dx/Rx/DC Orders Clinical Impression: Phlegmonous peritonitis, S/P laparoscopic appendectomy, Sinus tachycardia, Hypoxia, Bilateral atelectasis, Ileus, postoperative, Right upper lobe pneumonia Disposition Disposition: Acute Care [facility]
--- NOTE | 2022-04-18 23:03 | CT_ITS ---
STUDY: CTA CHEST REASON FOR EXAM: Male, 36 years old. High pretest probability pulmonary embolus. History of recent appendectomy with hypoxia, tachycardia and atelectasis on CT. TECHNIQUE: CT angiogram of chest was performed with the intravenous administration of 100 ml Isovue-370. Post-processing of the angiographic images was performed, with MIP and MPR reconstructions. Individualized dose optimization techniques were used for this CT. COMPARISON: Concurrent CT abdomen and pelvis FINDINGS: PULMONARY ARTERIES: No pulmonary arterial filling defects identified. Evaluation slightly limited by noise artifact and motion degradation. AORTA AND VISUALIZED GREAT VESSELS: No thoracic aortic aneurysm or dissection. Great vessels are patent. HEART AND PERICARDIUM: Heart size upper limits normal. No significant pericardial effusion. MEDIASTINUM AND TEREZA: No mediastinal or hilar adenopathy. Esophagus is unremarkable. LUNGS, PLEURA AND LARGE AIRWAYS: Right greater than left bilateral lower lobe atelectatic changes. Mild dependent atelectatic changes also within upper lobes. Superimposed patchy groundglass airspace opacities within right upper lobe. No discrete pulmonary mass. No pleural effusion or thickening. No pneumothorax. BONES: Intact with no suspicious osseous lesion. CHEST WALL: No chest wall mass or acute findings. VISUALIZED ABDOMEN: Trace perihepatic free fluid again noted. CT/CTA Chest W/WO Contrast IMPRESSION: 1. No pulmonary embolus identified. 2. Bilateral atelectatic changes with superimposed patchy airspace within right upper lobe suggesting infiltrate/infection. 3. Trace free fluid adjacent to liver. See separate CT abdomen and pelvis report. Electronically Signed: Rei Dangelo MD at 23:55 EDT ,
--- NOTE | 2022-04-18 23:25 | CON.PCM.SX_ITS ---
Assessment & Plan Assessment/Plan (1) S/P laparoscopic appendectomy: PLAN: Admit the patient start him on IV antibiotics and IV hydration. At this point there is not appear to be a drainable abscess but given his white count and tachycardia it makes sense to start him on the IV antibiotics. CT scan of the chest did not reveal any signs of pulmonary embolus at this time. (2) Ileus, postoperative: (3) Bilateral atelectasis: HPI Consult Data Date of Consult: 04/18/22 HPI Narrative HPI Narrative: JAVIER DOMINGO, is a 36 M who presents status post laparoscopic appendectomy by Dr. Smith on April 15.? He had an elevated white count at that time of 19.4 thousand.? He was discharged to home on the .? He contacted myself this evening.? He recommended he return to the emergency department.? Patient reports walking into the emergency department because of discomfort.? Car ride to the emergency department cause him discomfort.? He does report nausea without vomiting.? Is not had a bowel movement since surgery.? He is taking Metamucil.? He denies fever, chills night sweats.? He denies chest pain.? He denies dyspnea on exertion, orthopnea or PND.? He denies dysuria, frequency, urgency or hematuria. CT scan of his abdomen showed pericecal inflammation with stranding and small amount of ill-defined right lower quadrant free fluid. There is trace free fluid tracking up the right paracolic gutter and adjacent to the dome of the liver. Small amount of free fluid pooling in the pelvis no organized, rim- enhancing and or drainable abscess collection was detected at the time of that CAT scan. There were punctated focus of residual free air within the lower abdomen. There were also multiple mildly dilated loops of small bowel with partially decompression distal ileum. Gas and fecal matter were within the large colon.. Patient was tachycardic and subsequently underwent a CT scan of the chest which showed PFSH Home Medications amoxicillin 875 mg-potassium clavulanate 125 mg tablet 1 tab PO BID #6 tabs 04/16/22 [Rx Last Taken Unknown] oxycodone-acetaminophen 5 mg-325 mg tablet 1 - 2 tab PO Q6H PRN pain 3 days #20 tabs 04/16/22 [Rx Last Taken Unknown] ondansetron 4 mg disintegrating tablet 4 mg PO Q6H PRN nausea and vomiting #7 tabs 04/17/22 [Rx Last Taken Unknown] Allergy/AdvReac Type Severity Reaction Status Date / Time No Known Allergies Allergy Verified 04/18/22 21:18 Surgical History S/P laparoscopic appendectomy Social History household members: none Smoking Status: Never smoker substance use type: does not use ROS Constitutional Constitutional: Reports fatigue; Denies chills or fever(s) Eyes Eyes: Denies blurry vision ENT HEENT: Denies abnormal hearing Cardiovascular Cardiovascular: Reports dyspnea; Denies chest pain or chest pain at rest Respiratory/Chest Respiratory/Chest: Denies cough or shortness of breath with exertion Gastrointestinal Gastrointestinal: Reports abdominal pain, bloating, constipation and nausea; Denies diarrhea, hematochezia, melena or vomiting Genitourinary Genitourinary: Denies change in urinary stream Physical Exam Const alert and oriented x3 HEENT normocephalic and head/scalp atraumatic Eyes PERRL and EOMs intact bilaterally Resp clear to auscultation bilaterally Cardio Rate: tachycardic Rhythm: regular rhythm GI GI Narrative: Patient appears slightly distended. With guarding in the right lower quadrant with rebound tenderness Palpation: tender RLQ Bladder / Kidney Exam: no CVA tenderness Lab / Micro Data Result Diagrams: 04/18/22 21:35 04/18/22 21:35 Labs: Laboratory Results - last 24 hr 04/18/22 21:35: WBC 17.9 H, RBC 5.75, Hgb 16.9 H, Hct 51.8, MCV 90.1, MCH 29.4, MCHC 32.6, RDW Std Deviation 46.9 H, RDW Coeff of Harshil 14.2, Plt Count 279, MPV 9.8, Immature Gran % (Auto) 0.700, Neut % (Auto) 82.3 H, Lymph % (Auto) 8.9 L, [place] % (Auto) 6.1, Eos % (Auto) 1.7, Baso % (Auto) 0.3, Absolute Neuts (auto) 14.8 H, Absolute Lymphs (auto) 1.60, Nucleated RBC % 0 04/18/22 21:35: Sodium 137, Potassium 3.9, Chloride 103, Carbon Dioxide 26.0, Anion Gap 8, BUN 8, Creatinine 1.07, Estim Creat Clear Calc 105.76, Est GFR (MDRD) Af Amer 101, Est GFR (MDRD) Non-Af 83, BUN/Creatinine Ratio 7.5 L, Glucose 98, Calcium 9.5 Radiology Impression Abdomen/Pelvis CT 04/18/22 21:28 IMPRESSION: 1. Recent appendectomy with scattered small amounts of free peritoneal fluid and pericecal inflammation but no organized and/or drainable abscess collection demonstrated at this time. 2. Right greater than left bilateral lower lobe atelectatic changes. 3. Probable mild reactive small bowel ileus versus low-grade distal small bowel obstruction. Electronically Signed: Rei Dangelo MD at 22:17 EDT ,
[2022-04-18 23:46] LABS: Lactic Acid 0.8 mmol/L (0.4-1.9)
[2022-04-19] VITALS (17 sets, daily range): BP systolic 146–178; BP diastolic 92–112; PULSE 90–112; RESP 18–34; TEMP 36.8–37.5; O2SAT 92–96; BMI 33.6
[2022-04-19] MEDS: oxyCODONE 5 MG Tablet PO ×3 (01:09→14:38)
[2022-04-19] MEDS: 0.9% Normal Saline 1,000 ML 100 ML IV ×3 (01:10→23:26)
[2022-04-19] MEDS: Ondansetron 4 MG/2 ML Vial IV ×2 (03:14→12:03)
[2022-04-19] MEDS: HYDROmorphone 0.5 MG/0.5 ML SYRINGE IV ×5 (03:21→23:26)
[2022-04-19 06:03] LABS: Absolute Lymphocyte Count 1.14 X10^3/uL (0.83-4.51); Absolute Neutrophil Count 13.1 X10^3/uL (2.0-7.7); Basophil# 0.05 X10^3/uL; Basophil% 0.3 % (0-1); Eosinophil# 0.23 X10^3/uL; Eosinophils% 1.5 % (0-5); Hematocrit 47.1 % (40-54); Hemoglobin 15.7 g/dL (13.0-16.5); Lymphocyte # 1.14 X10^3/ul (0.83-4.51); Lymphocyte % 7.3 % (19-41); Mean Corp Hgb Conc 33.3 g/dL (32-36); Mean Corpuscular Hgb 30.3 pg (27.0-32.0); Mean Corpuscular Volume 90.8 fL (80-94); Mean Platelet Vol. 9.6 fl (6.2-12.0); Monocyte# 0.96 X10^3/uL; Monocyte% 6.1 % (0-10); NRBC Flagged by Analyzer 0 % (0-5); Neutrophil # 13.13 X10^3/uL (2.7-7.7); Platelet Count 266 K/mm3 (150-450); RBC Distribution Width CV 14.3 % (11.6-14.6); Red Blood Count 5.19 M/mm3 (4.6-6.2); White Blood Count 15.6 K/mm3 (4.4-11.0)
[2022-04-19 06:29] LABS: Anion Gap 7 (5-15); BUN 9 mg/dL (7-18); Calcium,Total 8.8 mg/dL (8.5-10.1); Chloride 105 mmol/L (98-107); EST Glomerular Filtration Rate 102 mL/min (>60); Est Glom Filt Rate - Afr Amer 124 mL/min (>60); Estimated Creatinine Clearance 125.74 ml/min; Glucose 109 mg/dL (74-106); Sodium Level 137 mmol/L (136-145)
[2022-04-19] MEDS: Ensure Clear 120 ML Liquid PO (09:46)
--- NOTE | 2022-04-19 10:36 | PCM.PN.SRG ---
Subjective Subjective Patient reports that he is passing some flatus and feels better than when he came in yesterday. He has not had a bowel movement. Denies nausea or vomiting. He feels less distended but he is still distended. He reports his pain improving as well. He also reports productive cough. Objective Data Objective Data Vital Signs: Vital Signs Temp Pulse Resp BP Pulse Ox O2 Del Method O2 Flow Rate 98.5 F 98 20 H 150/98 H 95 Nasal Cannula 2 04/19/22 08:30 04/19/22 08:30 04/19/22 08:30 04/19/22 08:30 04/19/22 08:30 04/19/22 08:30 04/19/22 06:29 Oxygen Flow Rate (L/min) 2 Oxygen Delivery Method Nasal Cannula Weight: 247 lb 12.793 oz Body Mass Index (BMI) 33.6 Intake & Output: Intake and Output for Last 24 Hours 04/17/22 04/18/22 04/19/22 23:59 23:59 23:59 Intake Total 1000 / 1000 1518.67 / 1518.67 Balance 1000 / 1000 1518.67 / 1518.67 Lab / Micro Data Result Diagrams: 04/19/22 05:44 04/19/22 05:44 Labs: Laboratory Results - last 24 hr 04/18/22 21:35: WBC 17.9 H, RBC 5.75, Hgb 16.9 H, Hct 51.8, MCV 90.1, MCH 29.4, MCHC 32.6, RDW Std Deviation 46.9 H, RDW Coeff of Harshil 14.2, Plt Count 279, MPV 9.8, Immature Gran % (Auto) 0.700, Neut % (Auto) 82.3 H, Lymph % (Auto) 8.9 L, [place] % (Auto) 6.1, Eos % (Auto) 1.7, Baso % (Auto) 0.3, Absolute Neuts (auto) 14.8 H, Absolute Lymphs (auto) 1.60, Nucleated RBC % 0 04/18/22 21:35: Sodium 137, Potassium 3.9, Chloride 103, Carbon Dioxide 26.0, Anion Gap 8, BUN 8, Creatinine 1.07, Estim Creat Clear Calc 105.76, Est GFR (MDRD) Af Amer 101, Est GFR (MDRD) Non-Af 83, BUN/Creatinine Ratio 7.5 L, Glucose 98, Calcium 9.5 04/18/22 23:09: Lactic Acid 0.8 04/19/22 05:44: WBC 15.6 H, RBC 5.19, Hgb 15.7, Hct 47.1, MCV 90.8, MCH 30.3, MCHC 33.3, RDW Std Deviation 48.0 H, RDW Coeff of Harshil 14.3, Plt Count 266, MPV 9.6, Immature Gran % (Auto) 0.800, Neut % (Auto) 84.0 H, Lymph % (Auto) 7.3 L, [place] % (Auto) 6.1, Eos % (Auto) 1.5, Baso % (Auto) 0.3, Absolute Neuts (auto) 13.1 H, Absolute Lymphs (auto) 1.14, Nucleated RBC % 0 04/19/22 05:44: Sodium 137, Potassium 4.0, Chloride 105, Carbon Dioxide 25.0, Anion Gap 7, BUN 9, Creatinine 0.90, Estim Creat Clear Calc 125.74, Est GFR (MDRD) Af Amer 124, Est GFR (MDRD) Non-Af 102, BUN/Creatinine Ratio 10.0, Glucose 109 H, Calcium 8.8 Radiography Diagnostic Testing: Radiology Impression Abdomen/Pelvis CT 04/18/22 21:28 IMPRESSION: 1. Recent appendectomy with scattered small amounts of free peritoneal fluid and pericecal inflammation but no organized and/or drainable abscess collection demonstrated at this time. 2. Right greater than left bilateral lower lobe atelectatic changes. 3. Probable mild reactive small bowel ileus versus low-grade distal small bowel obstruction. Electronically Signed: Rei Dangelo MD at 22:17 EDT , Chest CTA 04/18/22 23:03 IMPRESSION: 1. No pulmonary embolus identified. 2. Bilateral atelectatic changes with superimposed patchy airspace within right upper lobe suggesting infiltrate/infection. 3. Trace free fluid adjacent to liver. See separate CT abdomen and pelvis report. Electronically Signed: Rei Dangelo MD at 23:55 EDT , Assessment & Plan Assessment/Plan (1) Right upper lobe pneumonia: (2) Ileus, postoperative: PLAN: Plan Patient appears to have postoperative ileus after laparoscopic appendectomy. CT scan of the abdomen pelvis shows that there is a little bit of fluid in the abdomen and there is some stranding but the patient did have severe appendicitis. CT scan chest also showed right upper lobe pneumonia and the patient does report a productive cough. I will get a sputum sample and change his antibiotics to Levaquin and Flagyl and stop the Zosyn. Continue clear liquids today and IV fluids and if he is less distended and having more significant bowel function I will advance his diet tomorrow. Elliot Magaña MD Pager: [facility] [address] [place] [address], [address] [place] [address] Office:
--- NOTE | 2022-04-19 11:40 | CASEMGMT ---
MARIA DEL CARMEN BERRY Assessment: Face to Face with pt for initial transition planning/care coordination assessment. RN KRISTI introduced self and role at [facility], pt voices understanding and consents to assessment. Pt is A/O x4 and answers all questions appropriately at this time. Pt lying in bed with oxygen on in no distress. Care providers, pharmacy, and demographics verified/updated. Admitting Dx: postop ileus PCP:Pt denies. Provided pt with a local healthcare directory pamphlet. Specialists:Pt denies. Preferred Pharmacy: [facility] Insurance: [employer] Pres[employer] Benefit: yes LW/HPOA: Pt denies having a LW/DPOA and denies need for info regarding AD. LNOK: Vonda Chaudhari, sig other Living Arrangements: Pt lives with sig other and 3 children in a single story house with a couple of steps to enter. Pt reports he is I in ADL's and denies concerns at home. Transportation: Pt drives self and denies concerns with transportation. DME/HHC: Pt denies having any DME in the home or previous HHC. Pt states no concerns with going home at time of dc. Pt states no further concerns/needs. CM to follow. Advised pt to ask CM if any further question/concerns/needs arise, voices understanding. Pt Goal: Home Plan: Home
[2022-04-19] MEDS: levoFLOXacin IV 500 MG/100 ML BAG 100 MG IV (11:44)
[2022-04-19] MEDS: metroNIDAZOLE 500 MG/100 ML BAG 100 MG IV ×2 (14:15→22:03)
--- NOTE | 2022-04-19 19:26 | NURSING ---
COMMUNICATIONS TEXT TO DR ESCOBEDO THAT PT SAID PAIN MEDS WERE NOT EFFECTIVE LONG ENOUGH AND MAKING HIM NAUSEATED. ONLY ZOFRAN ORDERED AND GIVEN. NEXT TEXT WAS ASKING FOR SOMETHING ELSE FOR NAUSEA AND MAYBE TRYING TORADOL.
[2022-04-19] MEDS: proCHLORPERazine 10 MG/2 ML Vial IV (22:03)
[2022-04-19] MEDS: 0.9% Saline Lock 10 ML Syringe IV (22:05)
[2022-04-20] VITALS (10 sets, daily range): BP systolic 152–163; BP diastolic 89–103; PULSE 100–120; RESP 14–21; TEMP 36.3–37.5; O2SAT 92–97
[2022-04-20] MEDS: Ondansetron 4 MG/2 ML Vial IV ×2 (01:16→09:33)
[2022-04-20] MEDS: HYDROmorphone 0.5 MG/0.5 ML SYRINGE IV (01:34)
[2022-04-20] MEDS: HYDROmorphone 1 MG/ML Syringe IV ×4 (04:12→15:10)
[2022-04-20] MEDS: proCHLORPERazine 10 MG/2 ML Vial IV ×2 (04:14→11:32)
[2022-04-20] MEDS: 0.9% Saline Lock 10 ML Syringe IV ×4 (04:16→15:10)
[2022-04-20 04:51] LABS: Absolute Neutrophil Count 14.3 X10^3/uL (2.0-7.7); Basophil# 0.04 X10^3/uL; Basophil% 0.2 % (0-1); Eosinophil# 0.08 X10^3/uL; Eosinophils% 0.5 % (0-5); Hematocrit 50.4 % (40-54); Hemoglobin 16.7 g/dL (13.0-16.5); Lymphocyte % 7.6 % (19-41); Mean Corp Hgb Conc 33.1 g/dL (32-36); Mean Corpuscular Hgb 29.5 pg (27.0-32.0); Mean Corpuscular Volume 88.9 fL (80-94); Mean Platelet Vol. 9.7 fl (6.2-12.0); Monocyte# 1.16 X10^3/uL; Monocyte% 6.8 % (0-10); NRBC Flagged by Analyzer 0 % (0-5); Neutrophil # 14.33 X10^3/uL (2.7-7.7); Platelet Count 283 K/mm3 (150-450); RBC Distribution Width CV 14.5 % (11.6-14.6); RBC Distribution Width SD 47.8 fl (35.1-43.9); Red Blood Count 5.67 M/mm3 (4.6-6.2); White Blood Count 17.1 K/mm3 (4.4-11.0)
[2022-04-20 05:21] LABS: Anion Gap 11 (5-15); BUN 10 mg/dL (7-18); BUN/Creat Ratio 12.1 RATIO (10-20); Calcium,Total 8.8 mg/dL (8.5-10.1); Chloride 103 mmol/L (98-107); Creatinine, Serum 0.82 mg/dL (0.70-1.30); EST Glomerular Filtration Rate 113 mL/min (>60); Est Glom Filt Rate - Afr Amer 136 mL/min (>60); Estimated Creatinine Clearance 138.01 ml/min; Glucose 101 mg/dL (74-106); Sodium Level 136 mmol/L (136-145)
[2022-04-20] MEDS: metroNIDAZOLE 500 MG/100 ML BAG 100 MG IV (07:18)
--- NOTE | 2022-04-20 09:16 | CT_ITS ---
STUDY: CT Abdomen And Pelvis W/ Contrast Injection 04/20/2022 2:39 PM REASON FOR EXAM: Male, 36 years old. ABDOMINAL PAIN worsening white count, tachycardia, s/p appy -- PO and IV contrast TECHNIQUE: Transaxial images were obtained with oral contrast, and with Oral and amp;amp; IV Gastrografin and amp;amp; 100mL Isovue-300 intravenous contrast. Individualized dose optimization techniques were used for this CT. COMPARISON: 04.18.22. FINDINGS: Right greater than left bilateral lower lobe atelectatic changes vs developing infiltrates is unchanged. The visualized portions of the heart are within normal limits. Unremarkable liver. Unremarkable gallbladder and extrahepatic biliary system. Unremarkable spleen. Unremarkable pancreas. Ascites. Unremarkable bilateral adrenal glands. No acute findings of the right kidney. No acute findings of the left kidney. Unremarkable visualized stomach. There are dilated loops of the small intestine with a non-distended colon consistent with a small bowel obstruction. Unremarkable colon. There are surgical clips in the region of the appendix consistent with a prior appendectomy. Multiple scattered mesenteric, cecal, periappendiceal, and periaortic lymph nodes. This can suggest mesenteric adenitis. There are no acute findings of the abdominal aorta. Unremarkable inferior vena cava. Subcentimeter mesenteric lymph nodes. Unremarkable urinary bladder. There are prostatic calcifications. Free fluid in the pelvis. There are bilateral inguinal hernias containing fat. There is no bowel involvement. There is no incarceration. There is no findings suggesting that this is causing a bowel obstruction. There is an umbilical hernia containing fat. Unremarkable osseous structures. CT/Abdomen/Pelvis WITH Contrast IMPRESSION: (NOT LISTED IN ORDER OF SIGNIFICANCE) Small bowel gas pattern demonstrates increased dilation. There is also stair stepping of the small bowel which is seen in a small bowel obstruction. Transition point is not clearly visualized. Differential also includes post operative ileus. Right greater than left bilateral lower lobe atelectatic changes vs developing infiltrates is unchanged. Ascites. Other findings as above. Electronically Signed: Talon Brantley MD at 15:06 EDT ,
--- NOTE | 2022-04-20 09:17 | PCM.PN.SRG ---
Subjective Subjective The patient had some increased pain and vomiting yesterday evening. He still is reporting passing minimal flatus but it is passing and he does still have some abdominal pain. Objective Data Objective Data Vital Signs: Vital Signs Temp Pulse Resp BP Pulse Ox O2 Del Method O2 Flow Rate 98.7 F 107 H 14 157/93 H 95 Room Air 2 04/20/22 05:00 04/20/22 05:00 04/20/22 05:00 04/20/22 05:00 04/20/22 05:00 04/20/22 05:00 04/20/22 04:00 Oxygen Flow Rate (L/min) 2 Oxygen Delivery Method Room Air Weight: 247 lb 12.793 oz Body Mass Index (BMI) 33.6 Intake & Output: Intake and Output for Last 24 Hours 04/18/22 04/19/22 04/20/22 23:59 23:59 23:59 Intake Total 1000 / 1000 2923.67 / 2923.67 100 / 100 Output Total 390 / 390 Balance 1000 / 1000 2923.67 / 2533.67 -290 / -290 Lab / Micro Data Result Diagrams: 04/20/22 04:25 04/20/22 04:25 Labs: Laboratory Results - last 24 hr 04/20/22 04:25: WBC 17.1 H, RBC 5.67, Hgb 16.7 H, Hct 50.4, MCV 88.9, MCH 29.5, MCHC 33.1, RDW Std Deviation 47.8 H, RDW Coeff of Harshil 14.5, Plt Count 283, MPV 9.7, Immature Gran % (Auto) 0.900, Neut % (Auto) 84.0 H, Lymph % (Auto) 7.6 L, [place] % (Auto) 6.8, Eos % (Auto) 0.5, Baso % (Auto) 0.2, Absolute Neuts (auto) 14.3 H, Absolute Lymphs (auto) 1.30, Nucleated RBC % 0 04/20/22 04:25: Sodium 136, Potassium 4.0, Chloride 103, Carbon Dioxide 22.0, Anion Gap 11, BUN 10, Creatinine 0.82, Estim Creat Clear Calc 138.01, Est GFR (MDRD) Af Amer 136, Est GFR (MDRD) Non-Af 113, BUN/Creatinine Ratio 12.1, Glucose 101, Calcium 8.8 Physical Exam Const oriented x3 GI soft to palpation Inspection: abdominal distention Palpation: tender Assessment & Plan Assessment/Plan (1) Ileus, postoperative: (2) S/P laparoscopic appendectomy: (3) Right upper lobe pneumonia: PLAN: Plan Patient has postoperative ileus and I change his antibiotics yesterday due to the pneumonia but his white count went up and he did have vomiting overnight. He is back to being tachycardic with a low-grade fever of 99.5. I switched him back to his Zosyn as that was working well before and I will repeat his CT scan with p.o. and IV contrast to ensure nothing is becoming worse in the abdomen or there is not a drainable fluid collection that has formed. Continue clear liquids as tolerated with IV antibiotics. Continue pain control and incentive spirometer. Elliot Magaña MD Pager: [facility] [address] [place] [address], [address] [place] [address] Office:
[2022-04-20] MEDS: oxyCODONE 5 MG Tablet PO (09:32)
[2022-04-20] MEDS: 0.9% Normal Saline 1,000 ML 100 ML IV ×2 (11:47→22:38)
--- NOTE | 2022-04-20 11:58 | NURSING ---
CT HAD CALLED FOR PT TO COME DOWN. PT FOUND VOMITING IN EMESIS BAG, APPROX 200. PT HAS ALSO NOT EVEN STARTED 2ND BOTTLE OF CONTRAST. CT STAFF NOTIFIED. PT MEDICATED FOR PAIN AND NAUSEA.
--- NOTE | 2022-04-20 16:20 | RAD_ITS ---
EXAM: XR ABDOMEN, 1 VIEW CLINICAL INDICATION: NG placement TECHNIQUE: Frontal supine view of the abdomen/pelvis. This report was created using [employer] report generation technology. COMPARISON: Ct done earlier. FINDINGS: LOWER THORAX: No acute pathology. GASTROINTESTINAL TRACT: Unremarkable. Non-obstructive. No bowel or stomach distention. ORGANS: Unremarkable as visualized. No organomegaly. No abnormal calcifications. BONES/JOINTS: No acute pathology. SOFT TISSUES: No acute pathology. TUBES, LINES AND DEVICES: There is a feeding tube/ nasogastric tube noted. The tip is in the region of the stomach. RAD/Abdomen Single View IMPRESSION: There is a feeding tube/ nasogastric tube noted. The tip is in the region of the stomach. Electronically Signed: Talon Brantley MD at 16:46 EDT ,
[2022-04-20] MEDS: traZODone 50 MG Tablet NG (19:16)
[2022-04-20] MEDS: Phenol/Sodium Phenolate 180ML 3 SPRAY MUCOUS MEM (20:23)
--- NOTE | 2022-04-20 23:58 | NURSING ---
While rounding, this nurse found that Pt. had removed NG tube, Pt. stated that he just couldn't deal with it anymore, apologized but said it was causing him such anxiety it was like life or , he had to get it out, he was having a severe panic attack. Pt. stated that he was feeling better anyway and was not having any pain or nausea anymore, belly has felt better since an hour after the tube was put in and he was able to get all that stuff out. This nurse educated Pt. that even though he felt better, that he should have left the tube in place, as it was doing its job and there is a high likelihood that those symptoms will return. Informed him that he may need to have the tube placed again to give the gut more time to rest. Pt. states that is not happening, I will not have another one of those, I can't stand it Pt. states he feels like the problem is solved now anyway, and he will make sure he is up and moving and using his incentive spirometer to finish getting better. Pt. states that he is a little disappointed that he ended up back in the hospital to begin with. He doesn't feel like he was educated well enough and that he was sent home too early after his initial surgery, which is why he ended up having these problems now.
[2022-04-21] VITALS (7 sets, daily range): BP systolic 155–156; BP diastolic 90–98; PULSE 105–113; RESP 14–18; TEMP 37.2–37.6; O2SAT 93–97
--- NOTE | 2022-04-21 05:55 | RAD_ITS ---
STUDY: X-RAY - ABDOMEN/PELVIS REASON FOR EXAM: Male, 36 years old. Ileus TECHNIQUE: Single AP view of the abdomen / pelvis. COMPARISON: Comparison is made with prior study 04/20/2022. FINDINGS: The nasogastric tube has been removed. Residual mild degree of small bowel dilatation in the upper and mid abdomen. Oral contrast from prior CT examination is seen within the rectum. There is no demonstrated free abdominal air. The visualized liver, spleen and kidneys are grossly normal in size and morphology. Normal soft tissue structures. Normal visualized osseous structures. RAD/Abdomen Single View (Portable) IMPRESSION: The nasogastric tube has been removed. Mild degree of residual small bowel dilatation in the upper and mid abdomen. Oral contrast is seen throughout the colon down to the rectum. Electronically Signed: Zeus De Luna MD at 10:11 EDT ,
[2022-04-21 06:20] LABS: Absolute Lymphocyte Count 1.26 X10^3/uL (0.83-4.51); Absolute Neutrophil Count 13.9 X10^3/uL (2.0-7.7); Basophil# 0.05 X10^3/uL; Basophil% 0.3 % (0-1); Eosinophil# 0.11 X10^3/uL; Eosinophils% 0.7 % (0-5); Hematocrit 45.2 % (40-54); Lymphocyte # 1.26 X10^3/ul (0.83-4.51); Lymphocyte % 7.6 % (19-41); Mean Corp Hgb Conc 33.2 g/dL (32-36); Mean Corpuscular Hgb 29.2 pg (27.0-32.0); Mean Corpuscular Volume 87.9 fL (80-94); Mean Platelet Vol. 9.9 fl (6.2-12.0); Monocyte# 1.09 X10^3/uL; Monocyte% 6.6 % (0-10); NRBC Flagged by Analyzer 0 % (0-5); Neutrophil # 13.91 X10^3/uL (2.7-7.7); Neutrophil % 83.7 % (47-70); Platelet Count 324 K/mm3 (150-450); RBC Distribution Width CV 14.5 % (11.6-14.6); RBC Distribution Width SD 46.5 fl (35.1-43.9); Red Blood Count 5.14 M/mm3 (4.6-6.2); White Blood Count 16.6 K/mm3 (4.4-11.0)
[2022-04-21 06:46] LABS: Anion Gap 7 (5-15); BUN 11 mg/dL (7-18); BUN/Creat Ratio 13.2 RATIO (10-20); Calcium,Total 8.7 mg/dL (8.5-10.1); Chloride 105 mmol/L (98-107); Creatinine, Serum 0.83 mg/dL (0.70-1.30); EST Glomerular Filtration Rate 112 mL/min (>60); Est Glom Filt Rate - Afr Amer 135 mL/min (>60); Estimated Creatinine Clearance 136.35 ml/min; Glucose 92 mg/dL (74-106); Sodium Level 137 mmol/L (136-145)
--- NOTE | 2022-04-21 08:32 | PCM.PN.SRG ---
Subjective Subjective Patient had an NG placed yesterday due to nausea but was unable to keep it in overnight and pulled it out due to his anxiety. This morning he is saying that he is passing gas and had 2 bowel movements and no nausea. His abdomen pain is much improved. Objective Data Objective Data Vital Signs: Vital Signs Temp Pulse Resp BP Pulse Ox O2 Del Method O2 Flow Rate 98.9 F 113 H 14 155/91 H 93 Room Air 2 04/21/22 05:00 04/21/22 05:00 04/21/22 05:00 04/21/22 05:00 04/21/22 05:00 04/21/22 05:00 04/21/22 05:00 Oxygen Flow Rate (L/min) 2 Oxygen Delivery Method Room Air Weight: 247 lb 12.793 oz Body Mass Index (BMI) 33.6 Intake & Output: Intake and Output for Last 24 Hours 04/19/22 04/20/22 04/21/22 23:59 23:59 23:59 Intake Total 2923.67 / 2923.67 2380 / 2380 50 / 50 Output Total 1090 / 1790 700 / 700 Balance 2923.67 / 2533.67 1290 / 590 -650 / -650 Lab / Micro Data Result Diagrams: 04/21/22 05:07 04/21/22 05:07 Labs: Laboratory Results - last 24 hr 04/21/22 05:07: WBC 16.6 H, RBC 5.14, Hgb 15.0, Hct 45.2, MCV 87.9, MCH 29.2, MCHC 33.2, RDW Std Deviation 46.5 H, RDW Coeff of Harshil 14.5, Plt Count 324, MPV 9.9, Immature Gran % (Auto) 1.100 H, Neut % (Auto) 83.7 H, Lymph % (Auto) 7.6 L, [place] % (Auto) 6.6, Eos % (Auto) 0.7, Baso % (Auto) 0.3, Absolute Neuts (auto) 13.9 H, Absolute Lymphs (auto) 1.26, Nucleated RBC % 0 04/21/22 05:07: Sodium 137, Potassium 4.0, Chloride 105, Carbon Dioxide 25.0, Anion Gap 7, BUN 11, Creatinine 0.83, Estim Creat Clear Calc 136.35, Est GFR (MDRD) Af Amer 135, Est GFR (MDRD) Non-Af 112, BUN/Creatinine Ratio 13.2, Glucose 92, Calcium 8.7 Micro: Microbiology 04/18/22 23:41 Blood Culture (Wb) - Right Forearm Blood Culture - Preliminary No growth in 48 hours. 04/18/22 23:09 Blood Culture (Wb) - Anticubital Left Blood Culture - Preliminary No growth in 48 hours. 04/20/22 01:19 Sputum, Expectorated/Coughed Gram Stain - Final Radiography Diagnostic Testing: Radiology Impression Abdomen/Pelvis CT 04/20/22 09:16 IMPRESSION: (NOT LISTED IN ORDER OF SIGNIFICANCE) Small bowel gas pattern demonstrates increased dilation. There is also stair stepping of the small bowel which is seen in a small bowel obstruction. Transition point is not clearly visualized. Differential also includes post operative ileus. Right greater than left bilateral lower lobe atelectatic changes vs developing infiltrates is unchanged. Ascites. Other findings as above. Electronically Signed: Talon Brantley MD at 15:06 EDT , KUB X-Ray 04/20/22 16:20 IMPRESSION: There is a feeding tube/ nasogastric tube noted. The tip is in the region of the stomach. Electronically Signed: Talon Brantley MD at 16:46 EDT , Physical Exam Const oriented x3 and no apparent distress Resp normal respiratory effort GI soft to palpation Inspection: abdominal distention Assessment & Plan Assessment/Plan (1) Ileus, postoperative: PLAN: Patient's white count decreased slightly to 16 and he was unable to tolerate NG tube. The x-ray from this morning shows that the contrast yesterday CT has reached the colon and he does still have some dilated small bowel. He is still distended but he is not having any pain today and he is not having any nausea. He has had 2 bowel movements. I will stick with clear liquids and IV antibiotics today and hopefully advance his diet and possible discharge tomorrow if his white count is improving and he tolerates diet. Elliot Magaña MD Pager: [facility] [address] [place] [address] [address] [place] [address] Office:
[2022-04-21] MEDS: 0.9% Normal Saline 1,000 ML 100 ML IV ×2 (13:29→23:53)
--- NOTE | 2022-04-21 22:26 | NURSING ---
Pt up walking the halls denies any complaints at this time
[2022-04-22] VITALS (12 sets, daily range): BP systolic 140–160; BP diastolic 90–106; PULSE 101–106; RESP 16–20; TEMP 37.1–37.9; O2SAT 90–97; BMI 33.5
[2022-04-22 06:16] LABS: Absolute Lymphocyte Count 2.09 X10^3/uL (0.83-4.51); Absolute Neutrophil Count 14.9 X10^3/uL (2.0-7.7); Basophil# 0.08 X10^3/uL; Basophil% 0.4 % (0-1); Eosinophil# 0.29 X10^3/uL; Eosinophils% 1.5 % (0-5); Hematocrit 42.8 % (40-54); Hemoglobin 14.3 g/dL (13.0-16.5); Lymphocyte # 2.09 X10^3/ul (0.83-4.51); Lymphocyte % 10.9 % (19-41); Mean Corp Hgb Conc 33.4 g/dL (32-36); Mean Corpuscular Hgb 29.5 pg (27.0-32.0); Mean Corpuscular Volume 88.2 fL (80-94); Mean Platelet Vol. 9.6 fl (6.2-12.0); Monocyte# 1.33 X10^3/uL; NRBC Flagged by Analyzer 0 % (0-5); Neutrophil # 14.91 X10^3/uL (2.7-7.7); Platelet Count 341 K/mm3 (150-450); RBC Distribution Width CV 14.6 % (11.6-14.6); Red Blood Count 4.85 M/mm3 (4.6-6.2); White Blood Count 19.1 K/mm3 (4.4-11.0)
[2022-04-22 07:02] LABS: Anion Gap 7 (5-15); BUN 10 mg/dL (7-18); BUN/Creat Ratio 11.9 RATIO (10-20); Calcium,Total 8.4 mg/dL (8.5-10.1); Chloride 104 mmol/L (98-107); Creatinine, Serum 0.84 mg/dL (0.70-1.30); EST Glomerular Filtration Rate 111 mL/min (>60); Est Glom Filt Rate - Afr Amer 134 mL/min (>60); Estimated Creatinine Clearance 134.72 ml/min; Glucose 93 mg/dL (74-106); Potassium 3.8 mmol/L (3.5-5.1); Sodium Level 136 mmol/L (136-145)
[2022-04-22] MEDS: 0.9% Normal Saline 1,000 ML 100 ML IV (07:37)
--- NOTE | 2022-04-22 10:54 | PN.SURG_ITS ---
Subjective Subjective Patient does not report any nausea or vomiting Objective Data Objective Data Vital Signs: Vital Signs Temp Pulse Resp BP Pulse Ox O2 Del Method O2 Flow Rate 99.1 F 105 H 18 144/98 H 96 Room Air 2 04/22/22 08:00 04/22/22 08:00 04/22/22 08:00 04/22/22 08:00 04/22/22 08:00 04/22/22 08:00 04/21/22 17:15 Oxygen Flow Rate (L/min) 2 Oxygen Delivery Method Room Air Weight: 247 lb 12.793 oz Body Mass Index (BMI) 33.6 Intake & Output: Intake and Output for Last 24 Hours 04/20/22 04/21/22 04/22/22 23:59 23:59 23:59 Intake Total 2380 / 2380 3232.5 / 3232.5 1173.33 / 1173.33 Output Total 1090 / 1790 700 / 700 Balance 1290 / 590 2532.5 / 2532.5 1173.33 / 1173.33 Lab / Micro Data Result Diagrams: 04/22/22 05:28 04/22/22 05:28 Labs: Laboratory Results - last 24 hr 04/22/22 05:28: WBC 19.1 H, RBC 4.85, Hgb 14.3, Hct 42.8, MCV 88.2, MCH 29.5, MCHC 33.4, RDW Std Deviation 47.0 H, RDW Coeff of Harshil 14.6, Plt Count 341, MPV 9.6, Immature Gran % (Auto) 2.200 H, Neut % (Auto) 78.0 H, Lymph % (Auto) 10.9 L , [place] % (Auto) 7.0, Eos % (Auto) 1.5, Baso % (Auto) 0.4, Absolute Neuts (auto) 14.9 H, Absolute Lymphs (auto) 2.09, Nucleated RBC % 0 04/22/22 05:28: Sodium 136, Potassium 3.8, Chloride 104, Carbon Dioxide 25.0, Anion Gap 7, BUN 10, Creatinine 0.84, Estim Creat Clear Calc 134.72, Est GFR (MDRD) Af Amer 134, Est GFR (MDRD) Non-Af 111, BUN/Creatinine Ratio 11.9, Glucose 93, Calcium 8.4 L Micro: Microbiology 04/20/22 01:19 Sputum, Expectorated/Coughed Gram Stain - Final 04/20/22 01:19 Sputum, Expectorated/Coughed Respiratory Culture - Final Presumptive C albicans 04/18/22 23:41 Blood Culture (Wb) - Right Forearm Blood Culture - Preliminary No growth in 48 hours. 04/18/22 23:09 Blood Culture (Wb) - Anticubital Left Blood Culture - Preliminary No growth in 48 hours. Physical Exam Const oriented x3 GI soft to palpation Inspection: abdominal distention Assessment & Plan Assessment/Plan (1) S/P laparoscopic appendectomy: PLAN: The patient says that he tolerated clears yesterday and even tolerated full liquid diet. He is not having any nausea or vomiting today. His white count increased today to 19. Patient also was hiccuping when I examined him thi s morning. He was also profusely sweating and had a low-grade temperature. Given the fact that his white count went up despite antibiotics for 3 days and he is hiccuping and having low-grade fever I would recommend exploratory laparoscopy to examine the right lower quadrant and drain any possible abscess or perform an ileocecectomy if there is a leak. I discussed this with the patient in detail as well as the risks of bleeding, infection, injury to other organs, need for resection and open surgery. Patient understands all the risks and is willing proceed. Plan for surgery this afternoon. Elliot Magaña MD Pager: [facility] [address] [place] [address] [address] [place] [address] Office:
[2022-04-22] MEDS: Lactated Ringers 1,000 ML 15 ML IV (14:45)
--- NOTE | 2022-04-22 14:48 | PCM.OPRPT ---
Report of Operation Date of Procedure: 04/22/22 Pre-Operative Diagnosis: Sepsis and possible staple line leak Post-Operative Diagnosis: Normal postoperative abdomen Surgery/Procedure Performed:: Exploratory laparoscopy Description of Procedure: Patient was brought back to the operating room and general anesthesia was induced. The abdomen was prepped and draped in usual sterile fashion and a Montelongo catheter was placed. Next a midline incision was made at the prior midline incision and deepened to the fascia and the fascial suture was removed. Port was placed into the abdomen the abdomen was insufflated and the patient was placed in Trendelenburg position. The suprapubic and left lower quadrant incisions were incised and 5 mm ports were placed under direct visualization. The bowel was swept from the anterior abdominal wall and its fibrinous adhesions. There appeared to be some thin watery fluid in the abdomen but no gross purulence or succus. The staple line was inspected and identified and did not appear to be leaking. The terminal ileum was inspected and there did not appear to be a leak from this either. The pelvis was inspection and suctioned and then a 15 mm round drain was placed into the abdomen and into the pelvis and sutured to the skin through the left lower quadrant port. It was placed to bulb suction and the other ports were removed and the abdomen was allowed to desufflate. The midline fascia was closed with 0 Vicryl suture. The skin incisions were closed with interrupted 4-0 Monocryl suture. The drain was sutured to the skin using 4-0 nylon suture. Bandages were applied and patient was awoken and taken to PACU. Urine culture was sent before the Montelongo was removed and the Montelongo was removed. Admit VTE Documentation VTE Mechan Device Prophylaxis: SCD's
[2022-04-23] MEDS: 0.9% Normal Saline 1,000 ML 40 ML IV ×2 (00:08→21:16)
[2022-04-23 02:16] VITALS: BP 147/83; PULSE 99; RESP 18; TEMP 37.3; O2SAT 93
[2022-04-23] MEDS: Ondansetron 4 MG/2 ML Vial IV (05:20)
[2022-04-23] MEDS: 0.9% Saline Lock 10 ML Syringe IV (05:20)
[2022-04-23 06:18] LABS: Absolute Lymphocyte Count 1.47 X10^3/uL (0.83-4.51); Absolute Neutrophil Count 15.4 X10^3/uL (2.0-7.7); Basophil# 0.06 X10^3/uL; Basophil% 0.3 % (0-1); Hematocrit 46.4 % (40-54); Hemoglobin 15.4 g/dL (13.0-16.5); Lymphocyte # 1.47 X10^3/ul (0.83-4.51); Lymphocyte % 7.8 % (19-41); Mean Corp Hgb Conc 33.2 g/dL (32-36); Mean Corpuscular Hgb 29.2 pg (27.0-32.0); Mean Platelet Vol. 9.5 fl (6.2-12.0); Monocyte# 1.22 X10^3/uL; Monocyte% 6.5 % (0-10); NRBC Flagged by Analyzer 0 % (0-5); Neutrophil # 15.38 X10^3/uL (2.7-7.7); Neutrophil % 81.6 % (47-70); Platelet Count 409 K/mm3 (150-450); RBC Distribution Width CV 14.6 % (11.6-14.6); RBC Distribution Width SD 47.1 fl (35.1-43.9); Red Blood Count 5.27 M/mm3 (4.6-6.2); White Blood Count 18.9 K/mm3 (4.4-11.0)
[2022-04-23 07:10] LABS: Anion Gap 8 (5-15); BUN 11 mg/dL (7-18); BUN/Creat Ratio 12.2 RATIO (10-20); Calcium,Total 8.9 mg/dL (8.5-10.1); Chloride 102 mmol/L (98-107); EST Glomerular Filtration Rate 101 mL/min (>60); Est Glom Filt Rate - Afr Amer 123 mL/min (>60); Estimated Creatinine Clearance 125.74 ml/min; Glucose 98 mg/dL (74-106); Potassium 4.4 mmol/L (3.5-5.1); Sodium Level 134 mmol/L (136-145)
[2022-04-23 08:30] VITALS: BP 179/104; PULSE 104; RESP 18; TEMP 37.1; O2SAT 94
[2022-04-23] MEDS: proCHLORPERazine 10 MG/2 ML Vial IV (09:01)
--- NOTE | 2022-04-23 11:20 | PCM.PN.HOSP ---
Subjective Subjective Patient was seen and examined at [facility], he was admitted here for possible peritonitis following a recent appendectomy, patient was taken to surgery but no evidence of gross peritonitis was noted. Patient's white blood cell count remains elevated however, patient is coughing up some dark soler sputum, he states he does not feel bad, he is running a low-grade temperature, chest CTA performed on 04/18/2022 showed no evidence of pulmonary embolus but showed bilateral atelectatic changes superimposed with patchy airspace abnormalities involving the right upper lobe suggesting a possible infection. At this time, patient is on Zosyn. He is mildly tachycardic and his T-max over the last 24 hours appears to be 100.3. On examination, patient states he does not feel ill, he is coughing but he denies any fever or chills. Objective Data Objective Data Vital Signs: Vital Signs Temp Pulse Resp BP Pulse Ox O2 Del Method O2 Flow Rate 98.8 F 104 H 18 179/104 H 94 Room Air 4 04/23/22 08:30 04/23/22 08:30 04/23/22 08:30 04/23/22 08:30 04/23/22 08:30 04/23/22 08:30 04/23/22 02:16 Oxygen Flow Rate (L/min) 4 Oxygen Delivery Method Room Air Weight: 112.4 kg Body Mass Index (BMI) 33.5 Intake & Output: Intake and Output for Last 24 Hours 04/21/22 04/22/22 04/23/22 23:59 23:59 23:59 Intake Total 3232.5 / 3232.5 3148.08 / 3148.08 260 / 260 Output Total 700 / 700 455 / 455 365 / 365 Balance 2532.5 / 2532.5 2693.08 / 2693.08 -105 / -105 Lab / Micro Data Result Diagrams: 04/23/22 05:31 04/23/22 05:31 Labs: Laboratory Results - last 24 hr 04/23/22 05:31: WBC 18.9 H, RBC 5.27, Hgb 15.4, Hct 46.4, MCV 88.0, MCH 29.2, MCHC 33.2, RDW Std Deviation 47.1 H, RDW Coeff of Harshil 14.6, Plt Count 409, MPV 9.5, Immature Gran % (Auto) 3.800 H, Neut % (Auto) 81.6 H, Lymph % (Auto) 7.8 L, [place] % (Auto) 6.5, Eos % (Auto) 0.0, Baso % (Auto) 0.3, Absolute Neuts (auto) 15.4 H, Absolute Lymphs (auto) 1.47, Nucleated RBC % 0 04/23/22 05:31: Sodium 134 L, Potassium 4.4, Chloride 102, Carbon Dioxide 24.0, Anion Gap 8, BUN 11, Creatinine 0.90, Estim Creat Clear Calc 125.74, Est GFR (MDRD) Af Amer 123, Est GFR (MDRD) Non-Af 101, BUN/Creatinine Ratio 12.2, Glucose 98, Calcium 8.9 Micro: Microbiology 04/20/22 01:19 Sputum, Expectorated/Coughed Gram Stain - Final 04/20/22 01:19 Sputum, Expectorated/Coughed Respiratory Culture - Final Presumptive C albicans 04/18/22 23:41 Blood Culture (Wb) - Right Forearm Blood Culture - Preliminary No growth in 48 hours. 04/18/22 23:09 Blood Culture (Wb) - Anticubital Left Blood Culture - Preliminary No growth in 48 hours. Physical Exam Const alert, oriented x3, no apparent distress, healthy appearing and well nourished General Appearance: cooperative, well kempt and well developed Orientation / Consciousness: awake, oriented to person, oriented to place and oriented to time HEENT normocephalic and moist oral mucous membranes Eyes PERRL, EOMs intact bilaterally and conjunctivae normal Neck supple, no JVD, thyroid normal and no carotid bruits General: trachea midline Resp normal respiratory effort, no retractions, no use of accessory muscles and clear to auscultation bilaterally Auscultation: Negative for rales, rhonchi or wheezes Cardio regular rate, regular rhythm, S1 normal heart sound, S2 normal heart sound, no murmurs, no rub and no gallops GI normal to inspection, nondistended, normoactive bowel sounds, soft to palpation, non-tender and non-distended GI Narrative: Patient has a drain present in the right lower quadrant, attached to suction bulb. Extremity no clubbing, cyanosis or edema Skin no rashes or lesions noted General Skin Exam: no breakdown Neuro oriented x3, CN's II-XII intact bilaterally, no focal motor deficits and no sensory deficits noted Sensorium / Orientation: awake and alert Speech: speech normal Psych affect normal Assessment & Plan Assessment/Plan (1) S/P laparoscopic appendectomy: PLAN: Plan 1. Right upper lobe pneumonia-present on admission-infectious diseases will be seeing the patient today, it is possible the patient will need a 7-day course of antibiotics. Again further recommendations will be made by infectious diseases. I have ordered a respiratory panel on the patient, it is possible he may need a repeat chest x-ray-I will leave this up to infectious diseases. #2 leukocytosis-possibly secondary to right upper lobe pneumonia-this will need to be rechecked as an outpatient, patient does not appear to be acutely ill at this time #3 hypertension-patient states that he has had a history of borderline hypertension, he has several family members with essential hypertension, I believe the patient probably has essential hypertension, if his blood pressure remains elevated at the time of discharge I told him I would recommend taking a blood pressure medication and getting it rechecked as an outpatient-patient agrees with this approach. I will probably place him on lisinopril 20 mg daily at the time of discharge from the hospital. #4 outpatient metabolic steroid usage-patient states he uses testosterone enanthate which he buys on the street, I do not believe this would cause an elevated white blood cell count. Charges/Coding Visit Charges Inpatient E&M: 77322 Subs Hosp L2
--- NOTE | 2022-04-23 11:48 | RAD_ITS ---
STUDY: X-RAY CHEST REASON FOR EXAM: Male, 36 years old. Pneumonia TECHNIQUE: PA and lateral views of the chest. COMPARISON: None. FINDINGS: There is evidence of bibasilar patchy infiltrates slightly more prominent at the left lung base. Elevation of the right hemidiaphragm. There is no demonstrated pleural abnormality. Normal size heart. Normal mediastinum and roxanne. Normal visualized pulmonary arteries. Normal visualized aortic arch and descending thoracic aorta. Normal visualized thoracic spine. Normal visualized ribs, clavicles, and shoulders. Findings suggestive of a small bowel obstruction. RAD/Chest PA and Lateral IMPRESSION: Bibasilar infiltrates more prominent at the left lung base. Small bowel obstruction. Electronically Signed: Zeus De Luna MD at 12:40 EDT ,
--- NOTE | 2022-04-23 13:31 | PCM.CONS.GEN ---
Assessment & Plan Assessment/Plan (1) S/P laparoscopic appendectomy: (2) Ileus, postoperative: (3) Leukocytosis: PLAN: Clinically looks good, and overall feeling better. CXR with ? bibasilar infiltrates, but no dyspnea, fever, or cough. Sweats and subjective fever have resolved. Taken back to OR 04/[address] Magaña, no intra-abd sign of ongoing infection. Drain in place. Suspect wbc will slowly improve and likely can go home in next few days on short course po levaquin/flagyl. Ok to keep zosyn for now. Will follow HPI Consult Data Date of Consult: 04/23/22 HPI Narrative Reason for Consultation: leukocytosis HPI Narrative: JAVIER DOMINGO, is a 36 M who presented 04/15 with abd pain, taken to OR emergently that day by Dr. Garcia for acute necrotic perforated appendicitis. Discharged 04/16 on 3 days augmentin. At home, had ongoing pain, nausea, some subjective fever/sweats. Came back to ED 04/18, CT repeated with some inflammation and free fluid seen. Admitted on levaquin/flagyl, changed to zosyn. Started passing some gas, feeling better. Wbc cont to rise, so taken to OR 04/22 for re-eval and drain placement. Today, feeling better, sweats/fever resolved, drinking some clears. No cough or SOB, no dysuria. Abd pain well controlled. Full ROS performed and neg except as noted above. PFSH Home Medications oxycodone-acetaminophen 5 mg-325 mg tablet 1 - 2 tab PO Q6H PRN pain 3 days #20 tabs 04/16/22 [Rx Last Taken 04/18/22 17:00] ondansetron 4 mg disintegrating tablet 4 mg PO Q6H PRN nausea and vomiting #7 tabs 04/17/22 [Rx Last Taken 04/18/22 17:00] amoxicillin 875 mg-potassium clavulanate 125 mg tablet 1 tab PO BID antibiotic 04/19/22 [History Last Taken 04/18/22 17:00] ibuprofen 600 mg tablet 600 mg PO Q6H PRN Pain 04/19/22 [History Last Taken Unknown] Allergy/AdvReac Type Severity Reaction Status Date / Time No Known Allergies Allergy Verified 04/19/22 01:05 Surgical History S/P laparoscopic appendectomy Social History household members: none Smoking Status: Never smoker substance use type: does not use Physical Exam Const alert, oriented x3 and no apparent distress General Appearance: cooperative and well developed HEENT normocephalic and head/scalp atraumatic Eyes PERRL and EOMs intact bilaterally Neck supple and No nodes Resp normal air movement and clear to auscultation bilaterally Cardio regular rate and regular rhythm GI soft to palpation, non-tender and non-distended GI Narrative: Drain in place, serosanguinous fluid Extremity General Extremity: Negative for edema Skin no rashes or lesions noted Skin Narrative: Abd incisions bandaged, no redness Neuro CN's II-XII intact bilaterally Lab / Micro Data Attestation: I reviewed the patient's lab results. Result Diagrams: 04/23/22 05:31 04/23/22 05:31 Labs: Laboratory Results - last 24 hr 04/23/22 05:31: WBC 18.9 H, RBC 5.27, Hgb 15.4, Hct 46.4, MCV 88.0, MCH 29.2, MCHC 33.2, RDW Std Deviation 47.1 H, RDW Coeff of Harshil 14.6, Plt Count 409, MPV 9.5, Immature Gran % (Auto) 3.800 H, Neut % (Auto) 81.6 H, Lymph % (Auto) 7.8 L, [place] % (Auto) 6.5, Eos % (Auto) 0.0, Baso % (Auto) 0.3, Absolute Neuts (auto) 15.4 H, Absolute Lymphs (auto) 1.47, Nucleated RBC % 0 04/23/22 05:31: Sodium 134 L, Potassium 4.4, Chloride 102, Carbon Dioxide 24.0, Anion Gap 8, BUN 11, Creatinine 0.90, Estim Creat Clear Calc 125.74, Est GFR (MDRD) Af Amer 123, Est GFR (MDRD) Non-Af 101, BUN/Creatinine Ratio 12.2, Glucose 98, Calcium 8.9 Micro: Microbiology 04/23/22 10:30 Mucosa - Nasopharyngeal Respiratory Panel (PCR) - Final Radiology Impression Chest X-Ray 04/23/22 11:48 IMPRESSION: Bibasilar infiltrates more prominent at the left lung base. Small bowel obstruction. Electronically Signed: Zeus De Luna MD at 12:40 EDT ,
[2022-04-23 14:20] VITALS: BP 159/103; PULSE 88; RESP 14; TEMP 37.2; O2SAT 94
[2022-04-23 20:00] VITALS: BP 165/99; PULSE 93; RESP 20; TEMP 37; O2SAT 91
[2022-04-23 21:24] VITALS: BP 165/99; PULSE 93; RESP 20; TEMP 37; O2SAT 91
[2022-04-23] MEDS: oxyCODONE 5 MG Tablet 10 MG PO (21:33)
[2022-04-24 02:00] VITALS: BP 165/99; PULSE 93; RESP 20; TEMP 37; O2SAT 91
[2022-04-24 03:30] VITALS: BP 154/105; PULSE 93; RESP 18; TEMP 36.9; O2SAT 93
[2022-04-24] MEDS: oxyCODONE 5 MG Tablet 10 MG PO ×2 (03:44→08:37)
[2022-04-24 06:30] LABS: Basophil# 0.04 X10^3/uL; Eosinophil# 0.26 X10^3/uL; Hematocrit 48.9 % (40-54); Hemoglobin 15.7 g/dL (13.0-16.5); Mean Corp Hgb Conc 32.1 g/dL (32-36); Mean Corpuscular Hgb 28.7 pg (27.0-32.0); Mean Corpuscular Volume 89.4 fL (80-94); Mean Platelet Vol. 9.5 fl (6.2-12.0); Monocyte# 1.11 X10^3/uL; NRBC Flagged by Analyzer 0 % (0-5); POSITIVE COUNT YES; POSITIVE MORPHOLOGY YES; Platelet Count 427 K/mm3 (150-450); RBC Distribution Width CV 14.8 % (11.6-14.6); RBC Distribution Width SD 48.1 fl (35.1-43.9); Red Blood Count 5.47 M/mm3 (4.6-6.2); White Blood Count 15.7 K/mm3 (4.4-11.0)
[2022-04-24 06:54] LABS: Differential Indicated SCAN CRITERIA MET
[2022-04-24 07:05] LABS: Scan Smear per Review Criteria MANUAL DIFF; Total Cells Counted 100 (MANUAL DIFF)
[2022-04-24 07:07] LABS: Eosinophil 1 % (0-5); Lymphocyte 11 % (19-41); Metamyelocyte 6 % (0-1); Monocyte 4 % (0-10); Neutrophil-Band 1 % (0-5); Neutrophil-Segmented 77 % (47-70); Platelet Estimate ADEQUATE (ADEQ)
[2022-04-24 07:08] LABS: Absolute Neutrophil Count 12.2 X10^3/uL (2.0-7.7); Neutrophil # 12.22 X10^3/uL (2.7-7.7); Reactive Lymphocyte 1+; Red Cell Morphology NORM C+C NORMAL (NORM C&C)
[2022-04-24 07:09] LABS: Absolute Lymphocyte Count 1.72 X10^3/uL (0.83-4.51); Anion Gap 6 (5-15); BUN 10 mg/dL (7-18); BUN/Creat Ratio 9.9 RATIO (10-20); Calcium,Total 8.7 mg/dL (8.5-10.1); Chloride 104 mmol/L (98-107); Creatinine, Serum 1.01 mg/dL (0.70-1.30); EST Glomerular Filtration Rate 89 mL/min (>60); Est Glom Filt Rate - Afr Amer 108 mL/min (>60); Estimated Creatinine Clearance 112.05 ml/min; Glucose 105 mg/dL (74-106); Lymphocyte # 1.72 X10^3/ul (0.83-4.51); Potassium 4.1 mmol/L (3.5-5.1); Sodium Level 138 mmol/L (136-145)
--- NOTE | 2022-04-24 07:28 | PN.SURG_ITS ---
Subjective Subjective Patient reports doing well with no nausea or vomiting. He tolerated full liquids and had a bowel movement this morning. He is passing flatus. He is requiring minimal pain medication. Objective Data Objective Data Vital Signs: Vital Signs Temp Pulse Resp BP Pulse Ox O2 Del Method O2 Flow Rate 98.5 F 93 18 154/105 H 93 Room Air 4 04/24/22 03:30 04/24/22 03:30 04/24/22 03:30 04/24/22 03:30 04/24/22 03:30 04/24/22 05:43 04/24/22 02:00 Oxygen Flow Rate (L/min) 4 Oxygen Delivery Method Room Air Weight: 247 lb 12.793 oz Body Mass Index (BMI) 33.5 Intake & Output: Intake and Output for Last 24 Hours 04/22/22 04/23/22 04/24/22 23:59 23:59 23:59 Intake Total 3148.08 / 3148.08 1685.33 / 1905.33 529.25 / 529.25 Output Total 455 / 455 515 / 620 135 / 135 Balance 2693.08 / 2693.08 1170.33 / 1285.33 394.25 / 394.25 Lab / Micro Data Result Diagrams: 04/24/22 05:44 04/24/22 05:44 Labs: Laboratory Results - last 24 hr 04/24/22 05:44: WBC 15.7 H, RBC 5.47, Hgb 15.7, Hct 48.9, MCV 89.4, MCH 28.7, MCHC 32.1, RDW Std Deviation 48.1 H, RDW Coeff of Harshil 14.8 H, Plt Count 427, MPV 9.5, Immature Gran % (Auto) COMMERCIAL LOAN MANAGER, Neut % (Auto) COMMERCIAL LOAN MANAGER, Lymph % (Auto) COMMERCIAL LOAN MANAGER, [place] % (Auto) COMMERCIAL LOAN MANAGER, Eos % (Auto) COMMERCIAL LOAN MANAGER, Baso % (Auto) COMMERCIAL LOAN MANAGER, Absolute Neuts (auto) 12.2 H, Absolute Lymphs (auto) 1.72, Total Counted 100, Neutrophils % (Manual) 77 H, Band Neutrophils % 1, Lymphocytes % (Manual) 11 L, Monocytes % (Manual) 4, Eosinophils % (Manual) 1, Metamyelocytes % 6 H, Nucleated RBC % 0, Diff Path Review May foll, Reactive Lymphocytes 1+, Platelet Estimate ADEQUATE, RBC Morphology NORM C+C 04/24/22 05:44: Sodium 138, Potassium 4.1, Chloride 104, Carbon Dioxide 28.0, Anion Gap 6, BUN 10, Creatinine 1.01, Estim Creat Clear Calc 112.05, Est GFR (MDRD) Af Amer 108, Est GFR (MDRD) Non-Af 89, BUN/Creatinine Ratio 9.9 L, Glucose 105, Calcium 8.7 Micro: Microbiology 04/23/22 17:30 Interface Orders SARS-CoV-2 Antigen (Rapid) - Final 04/23/22 10:30 Mucosa - Nasopharyngeal Respiratory Panel (PCR) - Final 04/20/22 01:19 Sputum, Expectorated/Coughed Gram Stain - Final 04/20/22 01:19 Sputum, Expectorated/Coughed Respiratory Culture - Final Presumptive C albicans 04/18/22 23:41 Blood Culture (Wb) - Right Forearm Blood Culture - Preliminary No growth in 48 hours. 04/18/22 23:09 Blood Culture (Wb) - Anticubital Left Blood Culture - Preliminary No growth in 48 hours. Radiography Diagnostic Testing: Radiology Impression Chest X-Ray 04/23/22 11:48 IMPRESSION: Bibasilar infiltrates more prominent at the left lung base. Small bowel obstruction. Electronically Signed: Zeus De Luna MD at 12:40 EDT , Physical Exam Const oriented x3 Resp normal respiratory effort GI soft to palpation and non-tender Assessment & Plan Assessment/Plan (1) Ileus, postoperative: (2) Right upper lobe pneumonia: PLAN: Plan Patient seems to be doing better and his white count is finally starting to come down. I will start him on a regular diet today. If he tolerates regular diet I will discharge him home this afternoon on oral Levaquin and Flagyl for the pneumonia. I removed his drain this morning as it was still serosanguineous with minimal output this morning. Elliot Magaña MD Pager: [facility] [address] [place] [address], [address] [place] [address] Office:
--- NOTE | 2022-04-24 07:29 | PCM.DC.SUM ---
Providers Date of Admission: 04/18/22 Primary Care Physician: Fernanda Primary Care Phys Consultations 04/22/22 14:47 Consult: Infectious Disease Routine Consulting Provider: Amador Adler Reason for Consult: antibiotic management EMERGENT Consult: No MD Notified: Yes Date Notified: 04/22/22 Time Notified: 14:47 Method of Notification: Verbal Method of Consult:: In-Person Reason For Visit: POSTOPERATIVE ILEUS Diagnosis Discharge Diagnosis (1) Ileus, postoperative: Status: Acute Code(s): K91.89 - Other postprocedural complications and disorders of digestive system; K56.7 - Ileus, unspecified (2) Right upper lobe pneumonia: Status: Acute Code(s): J18.9 - Pneumonia, unspecified organism Plan Patient seems to be doing better and his white count is finally starting to come down. I will start him on a regular diet today. If he tolerates regular diet I will discharge him home this afternoon on oral Levaquin and Flagyl for the pneumonia. I removed his drain this morning as it was still serosanguineous with minimal output this morning. Elliot Magaña MD Pager: [facility] [address] [place] [address], [address] [place] [address] Office: Medications at Discharge Home Medications ondansetron 4 mg disintegrating tablet 4 mg PO Q6H PRN nausea and vomiting #7 tabs 04/17/22 ibuprofen 600 mg tablet 600 mg PO Q6H PRN Pain 04/19/22 levofloxacin 750 mg tablet 750 mg PO DAILY #5 tabs 04/24/22 metronidazole 500 mg tablet 500 mg PO TID #15 tabs 04/24/22 oxycodone 5 mg tablet 10 mg PO Q4H PRN PRN Pain Score 1-10/10 5 days #20 tabs 04/24/22 Hospital Course Operations - (Exploratory laparoscopy) Summary of Care Provided Hospital Course: The patient was admitted on postoperative day 2 from a laparoscopic appendectomy with postoperative ileus. He was started on fluids and antibiotics but his white count would not come down and he continued to have low-grade fevers as well as tachycardia. He was taken for exploratory laparoscopy and fluid was drained from the abdomen and afterwards the patient started tolerating a diet and was feeling much better and the white count started decreasing. Drain was removed and the patient is discharged home in stable condition. Weight / BMI Weight Weight: 247 lb 12.793 oz Body Mass Index (BMI) 33.5 ABG / Lab / Microbiology Data Result Diagrams: 04/24/22 05:44 04/24/22 05:44 Laboratory: Laboratory Results - last 24 hr 04/24/22 05:44: WBC 15.7 H, RBC 5.47, Hgb 15.7, Hct 48.9, MCV 89.4, MCH 28.7, MCHC 32.1, RDW Std Deviation 48.1 H, RDW Coeff of Harshil 14.8 H, Plt Count 427, MPV 9.5, Immature Gran % (Auto) VASCULAR SONOGRAPHER, Neut % (Auto) VASCULAR SONOGRAPHER, Lymph % (Auto) VASCULAR SONOGRAPHER, [place] % (Auto) VASCULAR SONOGRAPHER, Eos % (Auto) VASCULAR SONOGRAPHER, Baso % (Auto) VASCULAR SONOGRAPHER, Absolute Neuts (auto) 12.2 H, Absolute Lymphs (auto) 1.72, Total Counted 100, Neutrophils % (Manual) 77 H, Band Neutrophils % 1, Lymphocytes % (Manual) 11 L, Monocytes % (Manual) 4, Eosinophils % (Manual) 1, Metamyelocytes % 6 H, Nucleated RBC % 0, Diff Path Review May foll, Reactive Lymphocytes 1+, Platelet Estimate ADEQUATE, RBC Morphology NORM C+C 04/24/22 05:44: Sodium 138, Potassium 4.1, Chloride 104, Carbon Dioxide 28.0, Anion Gap 6, BUN 10, Creatinine 1.01, Estim Creat Clear Calc 112.05, Est GFR (MDRD) Af Amer 108, Est GFR (MDRD) Non-Af 89, BUN/Creatinine Ratio 9.9 L, Glucose 105, Calcium 8.7 Microbiology: Microbiology 04/23/22 17:30 Interface Orders SARS-CoV-2 Antigen (Rapid) - Final 04/23/22 10:30 Mucosa - Nasopharyngeal Respiratory Panel (PCR) - Final 04/20/22 01:19 Sputum, Expectorated/Coughed Gram Stain - Final 04/20/22 01:19 Sputum, Expectorated/Coughed Respiratory Culture - Final Presumptive C albicans 04/18/22 23:41 Blood Culture (Wb) - Right Forearm Blood Culture - Preliminary No growth in 48 hours. 04/18/22 23:09 Blood Culture (Wb) - Anticubital Left Blood Culture - Preliminary No growth in 48 hours. Radiography Diagnostic Testing: Radiology Impression Chest X-Ray 04/23/22 11:48 IMPRESSION: Bibasilar infiltrates more prominent at the left lung base. Small bowel obstruction. Electronically Signed: Zeus De Luna MD at 12:40 EDT , D/C Instructions Discharge Diet: Light diet - advance as tolerated Discharge Activity: May Drive (Do not drive on narcotic medication) and May Shower Lifting Restricted to (Lbs): 15 Lifting Restrictions: 15 lbs for 2 weeks Call your doctor if your incision/area has: Continuous Slow Oozing, Sudden Increased Bleeding, Increased Pain/ Swelling, Increased Redness, Foul Smelling Discharge and Swelling at the incision site Call your doctor if you observe: Fever of 101 or Higher Remove Dressing in: 2 days Cleanse incision/area with: Soap & Water Please Follow Up With: Gilda Garcia MD When: Please call to schedule 1 week follow up appointment. [phone] Meaningful Use Info Meaningful Use Diagnoses (Choose all that apply): None applicable Discharge Plan Admission Admit Date/Time: 04/18/22 23:59 Attending Provider: Elliot Magaña Primary Care Provider: Care Physician,No Primary Consulting Providers: Jarek Campbell ; Amador Adler Discharge Orders/Prescriptions Prescriptions: New oxycodone 5 mg Tablet 10 mg PO Q4H PRN PRN (Reason: Pain Score 1-10/10) 5 Days Qty: 20 0RF levofloxacin 750 mg tablet 750 mg PO DAILY Qty: 5 0RF metronidazole 500 mg tablet 500 mg PO TID Qty: 15 0RF Continued ondansetron 4 mg tablet,disintegrating 4 mg PO Q6H PRN (Reason: nausea and vomiting) Qty: 7 0RF ibuprofen 600 mg Tablet 600 mg PO Q6H PRN (Reason: Pain) Discontinued oxycodone-acetaminophen 5-325 mg tablet 1 - 2 tab PO Q6H PRN (Reason: pain) 3 Days Qty: 20 0RF amoxicillin-pot clavulanate 875-125 mg tablet 1 tab PO BID Referrals / Follow Up: Care Physician,No Primary [Primary Care Provider] - Disposition Disposition (needs filled in before D/C Order can be placed): Home, Self Care
[2022-04-24 08:00] VITALS: BP 149/97; PULSE 92; RESP 19; TEMP 36.9; O2SAT 95
[2022-04-24 08:43] VITALS: BP 149/97; PULSE 92; RESP 19; TEMP 36.9; O2SAT 95
[2022-04-26 11:14] LABS: Pathologist Review Reviewed
== END 2022-04-24 09:42 | disposition home or self-care (01) | DRG 356 ==
LOC: ED 23:08 → MS3 04-19 00:15
PROVIDERS: Admitting Provider Surgery; Emergency Provider Emergency Medicine; Visit Provider Surgery
PROC: 0WJG4ZZ Inspection of Peritoneal Cavity, Percutaneous Endoscopic Approach (ICD-10-PCS; CPT 44202; principal; 2022-04-22 12:10)
DX: K91.89 Other postprocedural complications and disorders of digestive system (principal); J18.9 Pneumonia, unspecified organism; K56.7 Ileus, unspecified; J98.11 Atelectasis; I10 Essential (primary) hypertension; Z90.49 Acquired absence of other specified parts of digestive tract; Z28.310 Unvaccinated for COVID-19; Z28.9 Immunization not carried out for unspecified reason
CPT/HCPCS: 36415; 71046; 71275; 74018; 74177; 80048; 83605; 85025; 87040; 87070; 87086; 87205; 87633; 87811; 97802; 99251; 99284; J7030; J7050; J7120; Q9967; A4216; G0463; J2405